=== PATIENT | female | born 1975 | race Caucasian/White ===

== ENCOUNTER 2023-08-03 14:51 | Outpatient (CLI) | payer OTHER, SELFPAY ==
[2023-08-03 15:39] LABS: Appearance Urine Clear (Clear); Bacteria Urine None Seen /hpf; Bilirubin Urine Negative (Negative); Blood Urine Negative (Negative); Color Urine Dark Yellow (Yellow); Glucose Urine UA Negative (Negative); Ketones Urine 1+ mg/dL (Negative); Leukocyte Esterase Ur Negative LEU/UL (Negative); Nitrate Urine Negative (Negative); Non Pathogenic Casts 0-2; Protein Urine Trace mg/dL (Negative); RBC Urine 0-2 /hpf (0-2); Specific Grav Ur 1.028 (1.001-1.035); Squamous Epithelial Cell Urine None seen /hpf (Few); WBC Urine 0-5 /hpf; pH Urine 5.5 (5.0-9.0)
[2023-08-03 15:58] LABS: Add Urine Microscopic? YES
[2023-08-03 15:59] LABS: D Dimer 0.53 ug/mL (<0.48)
== END 2023-08-03 14:52 | disposition home or self-care (01) ==
LOC: ANHLAB 14:59
PROVIDERS: PCP Emergency Medicine; Visit Provider Emergency Medicine
DX: D64.9 Anemia, unspecified (principal); E55.9 Vitamin D deficiency, unspecified; E78.5 Hyperlipidemia, unspecified; G54.7 Phantom limb syndrome without pain; R07.9 Chest pain, unspecified; Z89.611 Acquired absence of right leg above knee
CPT/HCPCS: 36415; 81001; 85380

== ENCOUNTER 2023-08-07 13:15 | Outpatient (CLI) | payer OTHER, SELFPAY ==
--- NOTE | ~2023-08-07 | CT_ITS ---
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 TECHNIQUE: Computed tomographic angiography (CTA) of the chest was performed with 100 mL Omnipaque-35 0 intravenous contrast. The dose-length product was 150.08 mGy-cm. Maximum intensity projection 3D-re constructions of the aorta and other arteries were constructed by the technologist on a separate work station. Automated exposure control and iterative reconstruction technique were employed. COMPARISON: None. FINDINGS: Study is technically adequate without evidence for pulmonary embolism. Heart size normal. N o thoracic lymphadenopathy. No significant pleural or pericardial effusion. There is right hydronephr osis, partially visualized. There is right renal cortical atrophy. There are groundglass opacities in the right upper and bilateral lower lobes, suspicious for pneumonia. There is mild emphysema. No end obronchial lesions. No pneumothorax. No acute osseous abnormality. IMPRESSION: 1. No evidence for pulmonary embolism. 2: Patchy groundglass opacities of the right upper and bilateral lower lobes, suspicious for pneumoni a. Reviewed, dictated and finalized at location B. APPLICATION CLERK IMPRESSION: 1. No evidence for pulmonary embolism. 2: Patchy groundglass opacities of the right upper and bilateral lower lobes, s uspicious for pneumonia.
[2023-08-07 13:48] LABS: Basophils Percent Auto 0.3 % (0.2-1.2); Eosinophils Absolute Auto 0.2 K/mm3 (0-0.3); Hematocrit 48.2 % (37.0-47.0); Hemoglobin 15.8 g/dL (12.0-15.0); Immature Granulocyte Absolute 0.02 K/mm3 (0.00-0.031); Immature Granulocyte Percent A 0.3 % (0-0.5); Lymphocytes Absolute Auto 2.73 K/mm3 (0.9-3.2); Lymphocytes Percent Auto 34.6 % (18.3-44.2); Mean Corpuscular HGB Conc 32.8 g/dl (32-36); Mean Corpuscular Hemoglobin 29.4 pg (26-34); Mean Corpuscular Volume 89.8 fl (80-100); Mean Platelet Volume 10.1 fl (7.4-10.4); Monocytes Absolute Auto 0.4 K/mm3 (0.1-0.6); Monocytes Percent Auto 5.4 % (2.6-8.5); Neutrophils Absolute Auto 4.5 K/mm3 (1.3-6.7); Neutrophils Percent Auto 57.4 % (45.5-73.1); Platelet Count Result 321 k/mm3 (150-375); Red Blood Count 5.37 M/mm3 (4.2-5.4); Red Cell Distribution Width 14.6 % (11.5-14.5); White Blood Count 7.9 K/mm3 (4.5-10.0)
[2023-08-07 13:59] LABS: Alanine Aminotransferase 11 U/L (6-35); Albumin Level 4.2 g/dL (3.5-5.1); Alkaline Phosphatase 99 U/L (38-126); Anion Gap 6 mmol/L (8-16); Aspartate Amino Transferase 25 U/L (14-36); Bilirubin,Total 0.5 mg/dL (0.2-1.3); Blood Urea Nitrogen 9 mg/dL (7-17); Calcium 9.9 mg/dL (8.4-10.2); Carbon Dioxide 29 mmol/L (22-30); Chloride 104 mmol/L (98-107); Cholesterol 247 mg/dL (0-200); Estimated Glomerular Filt Rate > 60; Glucose 91 mg/dL (65-110); HDL Direct 51 mg/dL; Phosphorus 4.4 mg/dL (2.5-4.5); Potassium 5.2 mmol/L (3.4-5.0); Sodium 139 mmol/L (137-145); Triglycerides 180 mg/dL (<150)
[2023-08-07 14:10] LABS: LDL Cholesterol Direct 147 mg/dL
[2023-08-07 14:24] LABS: Vitamin D 25 Hydroxy 18.2 ng/mL
[2023-08-07 17:05] LABS: Folic Acid 7.9 ng/mL (2.76->20)
== END 2023-08-07 13:16 | disposition home or self-care (01) ==
PROVIDERS: PCP Emergency Medicine; Visit Provider Emergency Medicine
DX: D64.9 Anemia, unspecified (principal); E55.9 Vitamin D deficiency, unspecified; E78.5 Hyperlipidemia, unspecified; R45.7 State of emotional shock and stress, unspecified; R07.9 Chest pain, unspecified; Z89.611 Acquired absence of right leg above knee
CPT/HCPCS: 36415; 71275; 80061; 80069; 80076; 82306; 82607; 82746; 84443; 85025; Q9967

== ENCOUNTER 2024-02-07 07:31 | Outpatient (CLI) | payer OTHER, SELFPAY ==
--- NOTE | ~2024-02-07 | MM_ITS ---
EXAMINATION: MM screening jaciel BI w adriana HISTORY: Screening TECHNIQUE: Craniocaudal and mediolateral oblique 3-D tomosynthesis images were obtained and synthetic 2-D images were generated. CAD analysis was submitted and interpreted. COMPARISON: No prior mammogram is available for comparison at this institution. BREAST PARENCHYMAL COMPOSITION: Dense: The breasts are heterogeneously dense, which may obscure small masses FINDINGS: There are bilateral breast asymmetries. There are no suspicious calcifications. No architec tural distortion. IMPRESSION: 1. Bilateral breast asymmetries. 2. Recommend comparison to previous mammograms. BI-RADS Category 0: Incomplete: Needs additional imaging evaluation. Reviewed, dictated and finalized at location B.
== END 2024-02-07 07:32 | disposition home or self-care (01) ==
PROVIDERS: PCP Emergency Medicine; Visit Provider Emergency Medicine
DX: Z12.31 Encounter for screening mammogram for malignant neoplasm of breast (principal); R92.8 Other abnormal and inconclusive findings on diagnostic imaging of breast
CPT/HCPCS: 77063; 77067

== ENCOUNTER 2024-04-10 12:40 | Outpatient (CLI) | payer OTHER, SELFPAY ==
--- NOTE | ~2024-04-10 | MMUS_ITS ---
EXAMINATION: MM diagnostic jaciel BI w adriana, US breast BI complete HISTORY: Follow-up breast asymmetries TECHNIQUE: Additional 3-D tomosynthesis images of the breasts were performed and synthetic 2-D images were generated. CAD analysis was submitted and interpreted. High resolution bilateral complete breas t ultrasound was performed. COMPARISON: 02/07/2024 BREAST PARENCHYMAL COMPOSITION: Dense: The breasts are extremely dense, which lowers the sensitivity of mammography. FINDINGS: MAMMOGRAPHIC FINDINGS: There are scattered bilateral breast asymmetries which are less apparent with spot compression and me diolateral views. No discrete mass identified. No suspicious architectural distortion. ULTRASOUND: Complete US of all 4 quadrants of the breast/s and retroareolar region was reviewed. Right breast: No heterogeneous echotexture without focal mass. Left breast: At 5:00, 2 cm from the nipple there is a normal intramammary lymph node measuring 5 mm. No suspicious masses to suggest malignancy. IMPRESSION: 1. No evidence for malignancy in either breast. 2. Routine yearly screening mammogram and regular clinical breast examination are recommended. BI-RADS Category 2: Benign finding(s). Reviewed, dictated and finalized at location B. IMPRESSION: 1. No evidence for malignancy in either breast. 2. Routine yearly screening mammogram and regular clinical breast examination a re recommended. BI-RADS Category 2: Benign finding(s).
== END 2024-04-10 12:41 | disposition home or self-care (01) ==
LOC: ANHIMG 12:42
PROVIDERS: PCP Emergency Medicine; Visit Provider Emergency Medicine
DX: R92.8 Other abnormal and inconclusive findings on diagnostic imaging of breast (principal)
CPT/HCPCS: 76641; 77062; 77066; G0279

== ENCOUNTER 2024-12-04 14:13 | Outpatient (CLI) | payer OTHER, SELFPAY ==
--- NOTE | ~2024-12-04 | CT_ITS ---
CT Scan of the Chest without Contrast: Clinical Indication: Solitary pulmonary nodule Technique: Contiguous sections were acquired throughout the chest without intravenous contrast. Dose reduction technique was used on this scan by utilizing automated exposure control and iterative recon struction technique. The dose-length product (DLP) was 66.12 mGy-cm. COMPARISON: 08/07/2023 Findings: There is no evidence of any significant mediastinal, hilar or axillary lymphadenopathy. The mediastin al soft tissues appear normal. There is no evidence of pleural or pericardial effusion. The lungs are clear. No pulmonary nodules or infiltrates are noted. Images through the upper abdomen reveal partially imaged severe right hydronephrosis with right renal cortical thinning. Impression: Clear lungs. Partially imaged severe chronic right hydronephrosis with right renal cortical thinning. Reviewed, dictated and finalized at location . Impression: Clear lungs. Partially imaged severe chronic right hydronephrosis with right renal cortical thinning.
--- OUTSIDE RECORDS SUMMARY | 2024-12-04 14:21 | XMS_ITS | Encounter Summary ---
Author Organization [facility] Healthcare Address [address] [place] [address] Care Team Providers Care Certified Detention Deputy Name Role Phone Emily Mcelroy MD Unavailable [phone] Beka Moss MD Primary Care Provider [phone] Sudhakar Lowery MD Unavailable [phone] Maria Isabel Temple MD Unavailable [phone] Encounter Details Date Type Department Care Team (Late st Contact Info) Description 12/02/2024 Hospital Encounter [facility] Operating Room [address] [facility] [place] [id number] Sudhakar Lowery MD [id number] [place], [place] [id number] Social History Tobacco Use Types Packs/Day Years Used Date Smoking Tobacco: Every Day Cigarettes 0.5 35.1 Started: 10/26/1989 Smokeless Tobacco: Never Alcohol Use Standard Drinks/Week Comments Not Currently 0 (1 standard drink = 0.6 oz pur e alcohol) prior ETOH use 2 years ago AUDIT-C Answer Date Recorded Q1: How often do you have a drink containing alcohol? Never 11/27/2024 Q2: How many drinks containi ng alcohol do you have on a typical day when you are drinking? Patient does not drink Q3: How often do you have si x or more drinks on one occasion? Never 11/27/2024 Hunger Vital Sign Answer Date Recorded Within the past 12 months, y ou worried that your food would run out before you got the money to buy more. Never true 03/13/20 24 Within the past 12 months, t he food you bought just didn't last and you didn't have money to get more. Never true 03/13/2024 Personal Safety Answer Date Recorded Have you ever been in or are you currently in a harmful physical or emotional relationship or is someone making you feel afraid or unsafe? 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 Never 11/27/2024 1:21 PM ARMANDOT Jenifer Salcedo RN Q2: How many drinks containing alcohol do you have on a typical day when you are drinking? Patient does not drink 11/27/2024 1:21 PM ARMANDOT Jenifer Salcedo RN Q3: How often do you have six or more drinks on one occasion? Never 11/27/2024 1:21 PM ARMANDOT Jenifer Salcedo RN documented as of this encounter Plan of Treatment Upcoming Encounters Date Type Department Care Team (Late st Contact Info) Description 12/05/2024 8:15 AM CDT Hospital Encounter [facility] Endoscopy [address] [place] [address] Sudhakar Lowery MD [address] [phone] [place] [address] 12/05/2024 8:15 AM CDT Anesthesia Event [facility] Endoscopy [address] [place] [address] Gaudencio Bailey MD [address] [place] [address] 12/05/2024 8:15 AM CDT - 12/05/2024 9:00 AM CDT Surgery [facility] Endoscopy [address] [address] Sudhakar Lowery MD [address] [facility] [phone] [place] [address] COLONOSCOPY Scheduled Procedures Name Priority Associated Diagnoses Date/Ti me COLONOSCOPY History of anal cancer 12/05/2024 8:15 AM CDT documented as of this encounter Visit Diagnoses Not on filedocumented in this encounter Admitting Diagnoses Diagnosis Anal squamous cell carcinoma (HCC) Malignant neoplasm of anus, unspecified site documented in this encounter Care Teams Certified Detention Deputy Relationship Specialty Start Date End Date Beka Moss MD [address] [place] [address] PCP - General Family Medicine 06/01/21 Emily Mcelroy MD [address] [place] [id number] 09/15/16 Sudhakar Lowery MD [address] [place] [address] Surgeon Colon and Rectal Surgery 09/15/21 Maria Isabel Temple MD [address] [phone] [place] [address] Referring Physician Gynecologic Oncology 09/16/21 documented as of this encounter
--- OUTSIDE RECORDS SUMMARY | 2024-12-04 14:21 | XMS_ITS | CONTINUITY OF CARE DOCUMENT ---
Author Name harrison terry Address Unknown Organization [facility] Address [address] [place] [address] Phone [phone] Care Team Providers Care Bingo Checker Name Role Phone Blake Quinones MD Unavailable LIAM COHEN MD Unavailable [phone] LIAM COHEN MD Unavailable PROBLEMS Condition Status Date Provider Notes Shortness of breath (SOB) active Aston Wich ARTHRITIS active Blake Quinones MD Leg pain Thromboangiitis obliterans active Blake Quinones MD Cervical cancer s/p radiatio n and chemo active Blake Quinones MD Chest pain-type to be determined active Celestino Quinones MD HYPERCHOLESTEROLEMIA active Blake Quinones MD CAROTID ARTERY DISEASE;NEG D UPLEX 2010 completed - Blake Quinones MD GALLSTONES;NEG US 2010 completed 6 - Blake Quinones MD MENOPAUSE, SURGICAL active Paul Canela MD SCHIZOPHRENIA completed - Blake Quinones MD BIPOLAR AFFECTIVE DISORDER completed 07/22 - Blake Quinones MD ANXIETY DISORDER active Paul Canela MD ORTHOSTATIC DIZZINESS;NEG HO LTER 2010 DUE TO PSYCH MEDS? completed - Blake Quinones MD CLAUDICATION, INTERMITTENT;W ILL REYNA completed - Blake Quinones MD ASTHMA active Blake Quinones MD CAD;NEG NUC 11, NEG ECHO 2011 completed 20 05/17/06 - Blake Quinones MD DVT;NEG VD 07 completed - Blake Quinones MD TOBACCO ABUSE active Paul Canela MD CHEST PAIN-TYPE TO BE DETERMINED;WILL ATKINS completed - Paul Canela MD ENCOUNTERS Date Type Provider Location Encounter Diag nosis - In-person encounter Office Visit Blake Quinones MD [facility] Office - In-person encounter Office Visit Blake Quinones MD [facility] ARTHRITIS - In-person encounter Office Visit Blake Quinones MD [facility] - In-person encounter Office Visit Blake Quinones MD [facility] - In-person encounter Office Visit Blake Quinones MD [facility] - In-person encounter Office Visit Blake Quinones MD [facility] Leg pain Thromboangiitis obliterans - In-person encounter Office Visit Blake Quinones MD [facility] Leg pain Thromboangiitis obliterans - In-person encounter Office Visit Blake Quinones MD [facility] DVT;NEG VD 07CAD;NEG NUC 11, NEG ECHO 2011ASTHMACLAUDICATION, INTERMITTENT;WILL ABIORTHOSTATIC DIZZINESS;NEG HOLTER 2010 DUE TO PSYCH MEDS?BIPOLAR AFFECTIVE DISORDERSCHIZOPHRENIAGALLSTONES;N EG US 2010CAROTID ARTERY DISEASE;NEG DUPLEX 2010Chest pain-type to be determinedCervical cancer s/p radiation and chemo - In-person encounter Office Visit Blake Quinones MD [facility] HYPERCHOLESTEROLEMIA - In-person encounter Office Visit Blake Quinones MD [facility] - In-person encounter Office Visit Paul Canela MD [facility] - In-person encounter Office Visit Paul Canela MD [facility] CHEST PAIN-TYPE TO BE DETERMINED;WILL WUASTHMAHYPERCHOLESTEROLEMIA - In-person encounter Office Visit Paul Canela MD [facility] TOBACCO ABUSECAD;NEG NUC 11, NEG ECHO 2011ASTHMAORTHOSTATIC DIZZINESS;NEG HOLTER 2010 DUE TO PSYCH MEDS?ANXIETY DISORDERMENOPAUSE, SURGICALGALLSTONES;NEG US 2010 VITAL SIGNS Date Observation Value Provider Body Mass Index (Ratio) 19.57 kg/m2 Denny Quinones MD pulse rate 93 /min [facility] blood pressure, diastolic 80 mm[Hg] [facility] blood pressure, systolic 100 mm[Hg] [facility] oxygen saturation, oximetry 98 % [facility] weight E&M 114 [lb_av] [facility] respiratory rate E&M 16 /min [facility] height E&M 64 [in_i] [facility] Body Mass Index (Ratio) 19.74 kg/m2 Denny Quinones MD blood pressure, diastolic 80 mm[Hg] Neal [facility] blood pressure, systolic 122 mm[Hg] Bhavin [facility] oxygen saturation, oximetry 98 % [facility] respiratory rate E&M 16 /min [facility] pulse rate 80 /min [facility] weight E&M 115 [lb_av] [facility] height E&M 64 [in_i] [facility] Body Mass Index (Ratio) 18.88 kg/m2 Denny Quinones MD blood pressure, diastolic 70 mm[Hg] Neal [facility] blood pressure, systolic 110 mm[Hg] Bhavin sanford Fisher oxygen saturation, oximetry 98 % [facility] respiratory rate E&M 16 /min [facility] 78 /[facility]&M 110 [lb_av] Tilden Gordon height E&M 64 [in_i] Tilden Gordon Body Mass Index (Ratio) 19.22 kg/m2 Denny Quinones MD blood pressure, cuff size regular Cy ntsintia Ho blood pressure, diastolic 70 mm[Hg] Cy ntsintia Ho blood pressure, systolic 116 mm[Hg] Radha zacarias Ho oxygen saturation, oximetry 98 % Kindra Ho respiratory rate E&M 18 /min Kindrachelsi Ho pulse rate 96 /min Kindra Arturobel l weight E&M 112 [lb_av] Kindra Campbel l height E&M 64 [in_i] Ikndra Campbel l Body Mass Index (Ratio) 18.88 kg/m2 Denny Quinones MD blood pressure, cuff size regular Ke rri Gruenenfdger blood pressure, diastolic 70 mm[Hg] Ke rri Gruenenfelder blood pressure, systolic 110 mm[Hg] Kristie Mcmahon oxygen saturation, oximetry 99 % Marsha Mcmahon respiratory rate E&M 18 /min Marsha jackson pulse rate 80 /min Marsha ludwiger weight E&M 110 [lb_av] Marsha Moore lder height E&M 64 [in_i] Marsha Moore lder Body Mass Index (Ratio) 19.39 kg/m2 Denny Quinones MD oxygen saturation, oximetry 98 % Marsha Mcmahon respiratory rate E&M 18 /min Marsha celisenenfeldmaribel pulse rate 78 /min Marsha Moore lder weight E&M 113 [lb_av] Marsha Moore lder height E&M 64 [in_i] Marsha Moore er Body Mass Index (Ratio) 18.81 kg/m2 Denny Quinones MD blood pressure, diastolic 75 mm[Hg] Jose Alberto Elena blood pressure, systolic 115 mm[Hg] Marilou Elena oxygen saturation, oximetry 95 % Alma Elena respiratory rate E&M 18 /min Kaitlin Elena pulse rate 71 /min Alma Villalta nsrain weight E&M 109.6 [lb_av] Alma lron height E&M 64 [in_i] Alma Villalta [facility] Body Mass Index (Ratio) 18.88 kg/m2 Denny Quinones MD blood pressure, cuff size small Marcos Jimenezby blood pressure, diastolic 60 mm[Hg] Marcos castillo [place] blood pressure, systolic 100 mm[Hg] Antwon hawkins Sona oxygen saturation, oximetry 98 % Ciara Jimenezby respiratory rate E&M 16 /min Ciara [place] pulse rate 78 /min Ciara [place] blood pressure, resting No Thong mukesh Jimenezby weight E&M 110 [lb_av] Ciara Sona height E&M 64 [in_i] Ciara [place] oxygen saturation, oximetry 98 % Lissette Beltrán respiratory rate E&M 16 /min Lissette rodrigez pulse rate 87 /min Lissette Beltrán blood pressure, diastolic 68 mm[Hg] Lissette Beltrán blood pressure, systolic 108 mm[Hg] Lissette Beltrán weight E&M 137 [lb_av] Lissette Beltrán blood pressure, diastolic 80 mm[Hg] Bocanegra blood pressure, systolic 160 mm[Hg] Reji Cisneros Body Mass Index (Ratio) 23.77 kg/m2 Rejiwillie verenice Cisneros blood pressure, diastolic 73 mm[Hg] Bocanegra blood pressure, systolic 116 mm[Hg] Reji fowlerjerad Amelia pulse rate 96 /min Rejimari Cisneros oxygen saturation, oximetry 98 % Jessi Cisneros respiratory rate E&M 16 /min Jessi Cisneros weight E&M 138 [lb_av] Hilaryjerad Cisneros height E&M 64 [in_i] Jessi Cisneros blood pressure, diastolic, left arm 80 mm [Hg] Jessi Cisneros blood pressure, systolic, left arm 115 mm [Hg] Jessi Cisneros blood pressure, diastolic, right arm 72 m m[Hg] Jessi Cisneros blood pressure, systolic, right arm 110 m m[Hg] Jessi Cisneros blood pressure, diastolic 72 mm[Hg] Bocanegra blood pressure, systolic 110 mm[Hg] Reji fowlerjerad Cisneros pulse rate 87 /min Rejimalcolmjerad Cisneros oxygen saturation, oximetry 99 % Jessi Cisneros respiratory rate E&M 16 /min Hilaryjerad Cisneros weight E&M 136 [lb_av] Jessi Cisneros blood pressure, diastolic, left arm 90 mm [Hg] Ry Zheng RN blood pressure, systolic, left arm 127 mm [Hg] Ry Zheng RN blood pressure, diastolic, right arm 88 m m[Hg] Ry Zheng RN blood pressure, systolic, right arm 127 m m[Hg] Ry Zheng RN blood pressure, diastolic 90 mm[Hg] Ross Zheng RN blood pressure, systolic 127 mm[Hg] Ry Zheng RN pulse rate 82 /min Ry Zheng RN oxygen saturation, oximetry 99 % Ry Zheng RN respiratory rate E&M 18 /min Ry Claudine fortune RN weight E&M 147 [lb_av] Ry Norm RN ALLERGIES Allergy Name Onset Date Reaction Criticality Status CODEINE Low Criticality active EPINEPHRINE Low Criticality active RESULTS Date Observation Value Provider Reference Range Interpretation Location lipoprotein, beta, serum, point, quantitative, calculated 127 mg/dL [facility] 0-99 High very low density lipoproteins 32 mg/dL [facility] 5-40 HDL cholesterol, serum 53 mg/dL [facility] >39 triglyceride, serum, random 158 mg/dL [facility] 0-149 High cholesterol, serum 212 mg/dL [facility] 100-199 High calcium, serum 9.9 mg/dL [facility] 8.7-10.2 carbon dioxide, venous blood 22 mmol/L [facility] 20-29 chloride, serum 100 mmol/L [facility] 96-106 potassium, serum 4.9 mmol/L [facility] 3.5-5.2 sodium, serum 138 mmol/L [facility] 542-012 2744/10 /17 urea nitrogen/creatinine ratio, serum 22 [facility] 9-23 eGFR if 127 mL/min/{1.73_ m2} [facility] >59 eGFR if not 110 mL/min/{1.73_ m2} [facility] >59 creatinine, serum 0.68 mg/dL [facility] 0.57-1.00 urea nitrogen, blood 15 mg/dL [facility] 6-24 blood glucose, random 80 mg/dL [facility] 65-99 prothrombin time (patient) 10.3 s [facility] 9.1-12.0 international normalized ratio (INR) 1.0 [facility] 0.8-1.2 basophil count, absolute 0.0 x10E3/uL [facility] 0.0-0.2 Eosinophil Absolute Count 0.1 X10E3/UL [facility] 0.0-0.4 monocyte count, blood, automated 0.5 X10E3/UL [facility] 0.1-0.9 lymphocyte count, blood, automated 2.1 X10E3/UL [facility] 0.7-3.1 Absolute Neutrophils 2.6 X10E3/UL [facility] 1.4-7.0 basophils as percent of blood leukocytes 0 % [facility] Not Estab. eosinophils as percent of blood leukocytes 2 % [facility] Not Estab. monocytes as percent of blood leukocytes 10 % [facility] Not Estab. lymphocytes as percent of blood leukocytes 40 % [facility] Not Estab. neutrophils as percent of blood leukocytes 48 % [facility] Not Estab. platelet count 270 X10E3/UL [facility] 570-087 9273/10 /17 red blood cell distribution width 14.5 % [facility] 12.3-15.4 mean corpuscular hemoglobin concentration, RBC 33.9 G/DL [facility] 31.5-35.7 mean corpuscular hemoglobin, RBC 30.7 pg [facility] 26.6-33.0 mean corpuscular volume, RBC 90 fL [facility] 79-97 hematocrit, blood 43.9 % [facility] 34.0-46.6 hemoglobin, blood 14.9 g/dL [facility] 11.1-15.9 erythrocyte (RBC) count 4.86 X10E6/UL [facility] 3.77-5.28 leukocyte count, blood 5.4 X10E3/UL [facility] 3.4-10.8 ferritin, serum 86 ng/mL [facility] 15-150 B-12, serum 210 pg/mL [facility] 232-1245 Low iron saturation percent, serum 14 % [facility] 15-55 Low iron, serum 45 ug/dL [facility] 27-159 iron binding capacity, unsaturated 266 ug/dL [facility] 034-145 3608/02 /20 iron binding capacity, total 311 ug/dL [facility] [phone]/02 /20 hemoglobin A1C, blood, as % of total hemoglobin 4.9 % [facility] 4.8-5.6 lipoprotein, beta, serum, point, quantitative, calculated 138 mg/dL [facility] 0-99 High very low density lipoproteins 15 mg/dL [facility] 5-40 HDL cholesterol, serum 61 mg/dL [facility] >39 triglyceride, serum, random 75 mg/dL [facility] 0-149 cholesterol, serum 214 mg/dL [facility] 100-199 High basophil count, absolute 0.0 x10E3/uL [facility] 0.0-0.2 Eosinophil Absolute Count 0.1 X10E3/UL [facility] 0.0-0.4 monocyte count, blood, automated 0.4 X10E3/UL [facility] 0.1-0.9 lymphocyte count, blood, automated 1.4 X10E3/UL [facility] 0.7-3.1 Absolute Neutrophils 4.0 X10E3/UL [facility] 1.4-7.0 basophils as percent of blood leukocytes 0 % [facility] Not Estab. eosinophils as percent of blood leukocytes 2 % [facility] Not Estab. monocytes as percent of blood leukocytes 7 % [facility] Not Estab. lymphocytes as percent of blood leukocytes 24 % [facility] Not Estab. neutrophils as percent of blood leukocytes 67 % [facility] Not Estab. platelet count 288 X10E3/UL [facility] 013-129 0557/02 /20 red blood cell distribution width 16.3 % [facility] 12.3-15.4 High mean corpuscular hemoglobin concentration, RBC 32.2 G/DL [facility] 31.5-35.7 mean corpuscular hemoglobin, RBC 28.6 pg [facility] 26.6-33.0 mean corpuscular volume, RBC 89 fL [facility] 79-97 hematocrit, blood 41.0 % [facility] 34.0-46.6 hemoglobin, blood 13.2 g/dL [facility] 11.1-15.9 erythrocyte (RBC) count 4.61 X10E6/UL [facility] 3.77-5.28 leukocyte count, blood 5.9 X10E3/UL [facility] 3.4-10.8 alanine aminotransferase (SGPT), serum 9 1/L [facility] 0-32 aspartate aminotransferase (SGOT), serum 14 1/L [facility] 0-40 alkaline phosphatase, serum 71 1/L [facility] 39-117 bilirubin, serum, total 0.3 mg/dL [facility] 0.0-1.2 albumin/globulin ratio, serum 1.9 [facility] 1.2-2.2 globulin, serum 2.2 [facility] 1.5-4.5 albumin, serum 4.1 g/dL [facility] 3.5-5.5 protein, total, serum 6.3 g/dL [facility] 6.0-8.5 calcium, serum 9.0 mg/dL [facility] 8.7-10.2 carbon dioxide, venous blood 23 mmol/L [facility] 18-29 chloride, serum 102 mmol/L [facility] 96-106 potassium, serum 4.7 mmol/L [facility] 3.5-5.2 sodium, serum 140 mmol/L [facility] 585-252 0917/02 /20 urea nitrogen/creatinine ratio, serum 15 [facility] 9-23 eGFR if not 116 mL/min/{1.73_ m2} [facility] >59 creatinine, serum 0.59 mg/dL [facility] 0.57-1.00 urea nitrogen, blood 9 mg/dL [facility] 6-20 blood glucose, random 78 mg/dL [facility] 65-99 thyroid stimulating hormone, serum 0.65 u[IU]/mL [facility] 0.270-4.20 Normal LDL/HDL (low-density lipoprotein/high-de nsity lipoprotein) ratio 2.6 RATIO [facility] 0.2-4.3 Normal VLDL cholesterol 25 mg/dL [facility] 8-41 Normal lipoprotein, beta, serum, point, quantitative, calculated 175 mg/dL [facility] 0-130 High cholesterol/HDL ratio, serum, percent 4.0 ratio [facility] 1.5-5.6 Normal HDL cholesterol, serum 67 mg/dL [facility] 65 Normal triglyceride, serum, fasting 124 mg/dL [facility] Normal cholesterol, serum 267 mg/dL [facility] 0-199 High bilirubin, serum, total 0.4 mg/dL [facility] 0-1.2 Normal alanine aminotransferase (SGPT), serum 19 1/L [facility] 0-33 Normal aspartate aminotransferase (SGOT), serum 17 1/L [facility] 0-32 Normal alkaline phosphatase, serum 66 1/L [facility] 35-104 Normal albumin/globulin ratio, serum 1.8 ratio [facility] 1.0-2.6 Normal globulin, serum 2.6 [facility] 1.6-4.0 Normal albumin, serum 4.7 g/dL [facility] 3.97-4.94 Normal protein, total, serum 7.3 g/dL [facility] 6.6-8.7 Normal calcium, serum 9.3 mg/dL [facility] 8.6-10.0 Normal blood glucose, random 108 mg/dL [facility] 74-109 Normal eGFR if 146 mL/min/{1.73_ m2} [facility] >60 Normal eGFR if not 121 mL/min/{1.73_ m2} [facility] >60 Normal urea nitrogen/creatinine ratio, serum 18.3 ratio [facility] 8.0-25.0 Normal creatinine, serum 0.6 mg/dL [facility] 0.50-0.90 Normal urea nitrogen, blood 11 mg/dL [facility] 6-20 Normal carbon dioxide, venous blood 26 mmol/L [facility] 22-29 Normal chloride, serum 98 MEQ/L [facility] 98-107 Normal potassium, serum 4.6 MEQ/L [facility] 3.5-5.1 Normal sodium, serum 138 MEQ/L [facility] 136-145 Normal alanine aminotransferase (SGPT), serum 17 1/L [employer] aspartate aminotransferase (SGOT), serum 25 1/L [employer] triglyceride, serum, fasting 71 mg/dL [employer] J[employer] HDL cholesterol, serum 43 mg/dL [employer] LDL cholesterol, serum 120 mg/dL [employer] cholesterol, serum 177 mg/dL CR[employer]ST[employer] triglyceride, target level 150 mg/dL CRYST[employer] HDL cholesterol, serum, target level 40 mg/dL CRYSTAL J[employer]EN[employer] LDL target level 130 mg/dL [employer] cholesterol, target level 200 mg/dL [employer] C-reactive protein, serum 0.42 mg/dL [facility] (<0.80) Normal platelet count 252 THOUSAND/UL [facility] (140-400) Normal red blood cell distribution width 13.3 % [facility] (11.0-15.0) Normal mean corpuscular hemoglobin concentration, RBC 33.7 G/DL [facility] (32.0-36.0) Normal mean corpuscular hemoglobin, RBC 31.4 pg [facility] (27.0-33.0) Normal mean corpuscular volume, RBC 93.0 fL [facility] (80.0-100.0 ) Normal hematocrit, blood 44.3 % [facility] (35.0-45.0) Normal hemoglobin electrophoresis, blood 14.9 [facility] (11.7-15.5) Normal erythrocyte (RBC) count 4.76 MILLION/UL [facility] (3.80-5.10) Normal leukocyte (white blood cells) count, blood 9.6 THOUSAND/UL [facility] (3.8-10.8) Normal alanine aminotransferase (SGPT), serum 9 1/L [facility] (6-40) Normal aspartate aminotransferase (SGOT), serum 13 1/L [facility] (10-30) Normal alkaline phosphatase, serum 65 1/L [facility] (33-115) Normal bilirubin, serum, total 0.4 mg/dL [facility] (0.2-1.2) Normal albumin/globulin ratio, serum 1.8 (calc) [facility] (1.0-2.1) Normal globulins, serum, total 2.6 G/DL (CALC) [facility] (2.2-3.9) Normal albumin, serum 4.6 g/dL [facility] (3.6-5.1) Normal protein, total, serum 7.2 g/dL [facility] (6.2-8.3) Normal calcium, serum 9.8 mg/dL [facility] (8.6-10.2) Normal carbon dioxide, venous blood 24 mmol/L [facility] (21-33) Normal chloride, serum 105 mmol/L [facility] (98-110) Normal potassium, serum 4.3 mmol/L [facility] (3.5-5.3) Normal sodium, serum 140 mmol/L [facility] (135-146) Normal urea nitrogen/creatinine ratio, serum NOT APPLICABLE (calc) [facility] (6-22) Estimated Glomerular Filtration Rate (calc) >60 mL/min/1.73m2 [facility] (> OR = 60) Normal creatinine, serum 0.72 mg/dL [facility] (0.58-1.06) Normal urea nitrogen, blood 8 mg/dL [facility] (7-25) Normal blood glucose, random 89 mg/dL [facility] (65-99) Normal cholesterol/HDL ratio, serum, percent 5.7 (calc) [facility] (< OR = 5.0) High LDL cholesterol, serum 178 MG/DL (CALC) [facility] (<130) High triglyceride, serum, fasting 107 mg/dL [facility] (<150) Normal HDL cholesterol, serum 42 mg/dL [facility] (> OR = 46) Low cholesterol, serum 241 mg/dL [facility] (125-200) High HISTORY OF MEDICATION USE Medication Status Instructions Dates Provider Indications Com ments XARELTO 2.5 MG ORAL TABLET active one tab by mouth twice daily Blake Quinones MD DOXYCYCLINE MONOHYDRATE 50 MG ORAL CAPSULE active 1 cap daily x 14 days Татьяна Cabrales BUPROPION HCL ER (SR) 150 MG ORAL TABLET EXTENDED RELEASE 12 HOUR active one a day instead of chantix Lupe Aguilera RN ZOLPIDEM TARTRATE 5 MG ORAL TABLET active one tab daily before bed Blake Quinones MD CHANTIX CONTINUING MONTH CECIL 1 MG ORAL TABLET completed take as directed pt has tried nicotine patches and gum in the past - Lupe Aguilera RN CHANTIX STARTING MONTH CECIL 0.5 MG X 11 & 1 MG X 42 ORAL TABLET completed take as directed pt has tried nicotine patches and gum in the past - Lupe Aguilera RN CILOSTAZOL 50 MG ORAL TABLET active take one pill twice a day Marsha RODRIGEZ NICOTINE 2 MG MOUTH/THROAT GUM completed Use as needed. - Kindra Ho ATORVASTATIN CALCIUM 40 MG ORAL TABLET active One tablet daily Blake Quinones MD PLAVIX 75 MG ORAL TABLET active ONE TAB. DAILY Blake Quinones MD ADVIL 200 MG ORAL CAPSULE completed as needed - Marsha Camposphuramy ZOFRAN TABLET active as needed Alma Elena ESTRADIOL 0.1 MG/24HR TRANSDERMAL PATCH WEEKLY active as directed Alma Elena GABAPENTIN 600 MG ORAL TABLET active take one tablet by mouth three times daily Ciara Magallanes MORPHINE SULFATE ER 15 MG ORAL TABLET EXTENDED RELEASE completed TAKE 1 TABLET EVERY 12 HOURS NEEDED FOR PAIN - Alma Andresenson #60, 30 days supply, Prescribed by HANNAH BAILEY, Filled 09/24/2016 OXYCODONE HCL 5 MG/5ML ORAL SOLUTION active TAKE ONE TO TWO TEASPOONSFUL EVERY 4 HOURS NEEDED FOR PAIN Ciara Magallanes #1000, 17 days supply, Prescribed by HANNAH BAILEY, Filled 09/24/2016 WELLBUTRIN 100 MG ORAL TABLET completed ONE TAB. DAILY - Ciara Magallanes ZETIA 10 MG ORAL TABLET completed ONE TAB. DAILY - Ciara Magallanes PRAVACHOL 40 MG ORAL TABLET completed ONE TAB. DAILY - Blake Quinones MD RANITIDINE HCL 150 MG ORAL TABLET completed 1 tab every other day - Blake Quinones MD OMEGA-3 FISH OIL 1000 MG ORAL CAPSULE completed One tab. daily - CARLOS SANDS NP ASPIRIN 81 MG ORAL TABLET completed ONE TAB. DAILY - Blake Quinones MD XYLOCAINE JELLY 2 % GEL completed apply to vulva as needed - Blake Quinones MD VENTOLIN HFA AEROSOL SOLUTION completed every 4 as needed - Blake Quinones MD ALPRAZOLAM 1 MG ORAL TABLET completed one tab three times daily - Blake Quinones MD ROPINIROLE HCL 2 MG ORAL TABLET completed one tab at bedtime - Blake Quinones MD ABILIFY 30 MG ORAL TABLET completed one tab every night - Blake Quinones MD LAMOTRIGINE 200 MG ORAL TABLET completed 1 tab every other day - Blake Quinones MD FLUOXETINE HCL 20 MG ORAL CAPSULE completed twice daily - Blake Quinones MD SOCIAL HISTORY Date Observation Value Provider social history E&M Marital Statu s: Single L mary with family/friends E thnicity: Smoking History: P atrobel currently smokes every day. P atrobel has been counseled to quit. Blake Quinones MD social history [facility] E&M reviewed - no changes required Blake Quinones MD physical exercise, frequency, days per week no [facility] caffeine use, averag e drinks per day yes [facility] passive cigarette sm emeli exposure no [facility] smoking/tobacco cess ation, patient education and counseling yes [facility] chewing tobacco use no [facility] cigar use no [facility] number of years as a smoker 10 years or more [facility] smoking, date started 1989 [facility] smoking history, tot al pack/year 24 [facility] smoking history, tot al pack/day 1/2 [facility] cigarette use yes [facility] smoking status Current every day smoker [facility] social history [facility] E&M reviewed - no changes required Blake Quinones MD social history E&M Marital Statu s: Single L amry with family/friends E thnicity: Smoking History: P atrobel currently smokes every day. P atrobel has been counseled to quit. Blake Quinones MD Underweight no Blake Quinones MD physical exercise, frequency, days per week [facility], averag e drinks per day yes Tilden Gordon passive cigarette sm emeli exposure no Maria Alejandra Gordon smoking/tobacco cess ation, patient education and counseling yes Maria Alejandra [facility] chewing tobacco use no cigar use no number of years as a smoker 10 years or more Maria Alejandra smoking, date started 1989 [facility] Fisher smoking history, tot al pack/year 24 smoking history, tot al pack/day 1/2 cigarette use yes smoking status Current every day smoker [facility] Underweight yes Blake Quinones MD social history revie wed E&M reviewed - no changes required Blake Quinones MD physical exercise, frequency, days per week no alcohol use, average drinks per day social basis only alcohol use no caffeine use, averag e drinks per day yes drug use none smoking/tobacco cess ation, patient education and counseling yes passive cigarette sm emeli exposure no chewing tobacco use no cigar use no Tilden number of years as a smoker 10 years or more Tilden smoking, date started 1989 [facility] Fisher smoking history, tot al pack/year 24 Tilden smoking history, tot al pack/day 1/2 Tilden cigarette use yes Tilden smoking status Current every day smoker Junaid alverto Fisher Underweight no Blake Quinones MD number of grandchildren Blake Quinones MD T marques Quinones MD social history E&M Marital Statu s: Single L mary with family/friends E thnicity: Smoking History: P margie currently smokes every day. P margie has been counseled to quit. Blake Quinones MD social history revie wed E&M reviewed - no changes required Blake Quinones MD physical exercise, frequency, days per week no Kindra Vic alcohol use, average drinks per day social basis only Kindra Ho alcohol use no Kindra Bedolla akash caffeine use, averag e drinks per day yes Kindra Ho drug use none Kindra Morrisraina bustos smoking/tobacco cess ation, patient education and counseling yes Kindra Ho passive cigarette sm emeli exposure no Kindra Ho chewing tobacco use no Kindra Ho cigar use no Kindra Morrisraina bustos number of years as a smoker 10 years or more Kindra Vic smoking, date started 1989 Radhasandra gagnon Vic smoking history, tot al pack/year 24 Kindra Vic smoking history, tot al pack/day 1/ Kindra Vic cigarette use yes Kindra pratt smoking status current every day smoker C gamal Ho Underweight yes Blake Quinones MD social history E&M Marital Statu s: Single L mary with family/friends E thnicity: Smoking History: P margie currently smokes every day. P margie has been counseled to quit. Blake Quinones MD social history revie wed E&M reviewed - no changes required Blake Quinones MD physical exercise, frequency, days per week no Marsha Mcmahon alcohol use, average drinks per day social basis only Marsha Mcmahon alcohol use no Marsha nicole caffeine use, averag e drinks per day yes Marsha Mcmahon drug use none Marsha nicole smoking/tobacco cess ation, patient education and counseling yes Marsha Mcmahon passive cigarette sm emeli exposure no Marsha Mcmahon chewing tobacco use no Marsha Andres jean cigar use no Marsha Teresa lder number of years as a smoker 10 years or more Marsha Lisandro smoking, date started 1989 Marsha Mcmahon smoking history, tot al pack/year 24 Marsha Lisandro smoking history, tot al pack/day 1/2 Marsha Lisandro cigarette use yes Marsha Smith [facility] smoking status current every day smoker K vern Parvezmichaelaafshan social history revie wed E&M reviewed - no changes required Blake Quinones MD Underweight no Blake Quinones MD physical exercise, frequency, days per week no Marsha Smithafshan alcohol use, average drinks per day social basis only Marshaaj Solorzanopinkymichaelaafshan alcohol use no Marsha Teresa [facility] caffeine use, averag e drinks per day yes Marsha Lisandro drug use none Marsha Teresa er smoking/tobacco cess ation, patient education and counseling yes Marsha Sarahafshan passive cigarette sm emeli exposure no Marsha Sarahdgmaribel chewing tobacco use no Marsha Andres alanizafshan cigar use no Marsha Teresa er number of years as a smoker 10 years or more Marsha Lisandro smoking, date started 1989 Marsha Smithafshan smoking history, tot al pack/year 24 Marsha Sarahdgmaribel smoking history, tot al pack/day 1/2 Marsha Sarahdgmaribel cigarette use yes Marsha Smith [facility] smoking status current every day smoker K vern Camposphumichaelaafshan social history E&M Marital Statu s: Single L mary with family/friends E thnicity: Smoking History: P margie currently smokes every day. P margie has been counseled to quit. Blake Quinones MD social history revie wed E&M reviewed - no changes required Blake Quinones MD Underweight yes Blake Quinones MD physical exercise, frequency, days per week no Alma Ulcies alcohol use, average drinks per day social basis only Alma Elena alcohol use no Alma lara caffeine use, averag e drinks per day yes Alma Elena drug use none Alma Villalta marco smoking/tobacco cess ation, patient education and counseling yes Alma Elena passive cigarette sm emeli exposure no Alma Elena chewing tobacco use no Rodrigo manuel Ulices cigar use no Alma Villalta carlorain number of years as a smoker 10 years or more Alma Elena smoking, date started 1989 Larissa Elena smoking history, tot al pack/year 24 Alma Ulices smoking history, tot al pack/day 1/2 Alma Elena cigarette use yes Alma williamson smoking status current every day smoker Shahbaz Quintanaisiah AndresElena social history revie wed E&M reviewed - no changes required Blake Quinones MD Underweight yes Blake Quinones MD smoking status current every day smoker T marques Quinones MD social history revie wed E&M reviewed Blake Quinones MD smoking/tobacco cess ation, patient education and counseling yes Blake Quinones MD quit smoking, stage precontemplative Denny Quinones MD smoking history, tot al pack/year 24 Blake Quinones MD drug use none Blake Quinones MD social history revie wed E&M reviewed Blake Quinones MD passive cigarette sm emeli exposure no Jessi Cisneros chewing tobacco use no Jessi Cisneros cigar use no Jessi Cisneros smoking history, tot al pack/day 1/2 Jessi Cisneros cigarette use yes Jessi jackson smoking history, tot al pack/year 24 Jessi Cisneros smoking, date started 1989 Pete Cisneros smoking status smoker - current status unknown Blake Quinones MD quit smoking, stage contemplative CRYSTAL JESENICK [employer] cigarette use 0.5 CRYSTAL JESENI CK [employer] smoking status current CRYSTAL MARGYSEN ICK [employer] social history revie wed E&M reviewed CARLOS SANDS [employer] social history revie wed E&M reviewed Paul Canela MD quit smoking, stage relapse Paul holman MD smoking/tobacco cess ation, patient education and counseling yes Ry Zheng RN social history E&M Marital Statu s: Single L mary with family/friends E thnicity: Ry Zheng RN social history revie wed E&M reviewed Ry Zheng RN physical exercise, frequency, days per week no [employer] caffeine use, averag e drinks per day yes [employer] alcohol use, average drinks per day social basis only [employer] number of years as a smoker 10 years or more [employer] smoking status Smoker [employer] FUNCTIONAL STATUS Date Observation Value Provider HRA, CV Assess/Plan, Angina (inactive) Management Plan continue current therapy Blake Quinones MD MENTAL STATUS Date Observation Value Provider assessment of judgme nt and insight E&M Alert and oriented to time, place and person. depressed affect. Blake Quinones MD assessment of judgme nt and insight E&M Alert and oriented to time, place and person. depressed affect. Blake Quinones MD assessment of judgme nt and insight E&M Alert and oriented to time, place and person. depressed affect. CARLOS SANDS NP assessment of judgme nt and insight E&M Alert and oriented to time, place and person. depressed affect. Paul Canela MD assessment of judgme nt and insight E&M Alert and oriented to time, place and person. depressed affect. Ry Zheng RN FAMILY HISTORY Family Member Condition Father SD male <55 Mother SD female <65 INSURANCE PROVIDERS Payer name Policy type / Coverage type [place] [employer] MEDICA[employer] (2) Medicaid [id number] ADVANCE DIRECTIVES Name Date DISCUSSED - NO DECISION MADE TREATMENT PLAN Date Name Performer Cardiology Blake Quinones MD Cardiology Blake Quinones MD Cardiology Blake Quinones MD Cardiology Blake Quinones MD Cardiology Blake Quinones MD Cardiology Blake Quinones MD Cardiology Blake Quinones MD Cardiology Blake Quinones MD Cardiology Blake Quinones MD Cardiology Blake Quinones MD Cardiology Blake Quinones MD Cardiology Blake Quinones MD Cardiology Blake Quinones MD Cardiology Blake Quinones MD Cardiology follow up Blake dumont MD Cardiology follow up Blake dumont MD Cardiology follow up Blake dumont MD Cardiology follow up Blake dumont MD Cardiology follow up Blake dumont MD Cardiology follow up Blake dumont MD Cardiology Follow up Blake dumont MD Cardiology Follow up Balke dumont MD Cardiology Follow up Blake duomnt MD Cardiology Follow up Blake dumont MD Cardiology Follow up Blake dumont MD Cardiology Follow up Blake dumont MD Cardiology Follow up Blake dumont MD Cardiology Follow up Blake dumont MD Cardiology Follow up Blake dumont MD Cardiology Follow up :check echo , stress test Blake Quinones MD Cardiology Follow up :exercise , asa, plavix, pletal Blake Quinones MD Cardiology:The Patie nt was reencouraged to stop smoking. She is trying to quit currently. Provided prescription for Nicotine gum. Blake Quinones MD Cardiology:Will get recent blood work from Dr. Cohen. Blake Quinones MD Cardiology:C/o sever e leg pain with walking. Has significant limitation with activity tolerance due to pain. Currently is smoking half ppd. P lease schedule an AIF with Dr. Guevara. W ill add Plavix 75 mg daily and atorvastatin 40 mg daily. W ill get a copy of results from [facility], carotid doppler, and recent blood work from Dr. Cohen. Blake Quinones MD Cardiology Blake Quinones MD Cardiology Blake Quinones MD Cardiology Blake Quinones MD Cardiology Blake Quinones MD Cardiology:Check ech o and stress test. P FTs and xray Blake Quinones MD : H er updated medication list for this problem includes: Zetia 10 Mg Tabs (Ezetimibe) ..... One tab. daily BP today: 108/68 Prior BP: 160/80 (09/09/2013) C HOL: 267 (08/26/2013) LDL: 175 (08/26/2013) HDL: 67 (08/26/2013) T (08/26/2013) C HOL (goal): 200 (05/18/2011) LDL (goal): 130 (05/18/2011) HDL (goal): 40 (05/18/2011) TG (goal): 150 (05/18/2011) Blake Quinones MD : C arotid Duplex Scan: N dalia GC (08/02/2010) Blake Quinones MD follow up: H er updated medication list for this problem includes: Alprazolam 1 Mg Tabs (Alprazolam) ..... One tab three times daily Aspirin 81 Mg Tabs (Aspirin) ..... One tab. daily BP today: 116/73 Prior BP: 110/72 (10/21/2010) H CT: 44.3 (07/29/2010) Platelets: 252 THOUSAND/UL (07/29/2010) R BC: 4.76 MILLION/UL (07/29/2010) BUN: 8 (07/29/2010) Creat: 0.72 (07/29/2010) Glucose: 89 (07/29/2010) N a+: 140 (07/29/2010) K+: 4.3 (07/29/2010) Cl: 105 (07/29/2010) Calcium: 9.8 (07/29/2010) Nuclear Stress Findings: 1. Regadenoson mediated myocardial perfusion study 2. Normal left ventricular systolic function with a calculated ejection fraction of 57%. 3 . No obvious significant scintigraphic evidence of myocardial ischemia or scar. GC (07/22/2010) Blake Quinones MD Lipid Mgmt: H er updated medication list for this problem includes: Pravachol 40 Mg Tabs (Pravastatin sodium) ..... One tab. daily CARLOS SANDS NP follow up Paul Canela MD follow up: O rders: A rterial Duplex Lower Extremity Bilateral (CPT-16114) S pirometry (CPT-28595) Paul Canela MD follow up: O rders: A rterial Duplex Lower Extremity Bilateral (CPT-13488) S pirometry (CPT-27501) e Prescribe - Check this box if eRx is used (CPT-G8553) Paul Canela MD follow up: H er updated medication list for this problem includes: Pravachol 40 Mg Tabs (Pravastatin sodium) ..... One tab. daily Orders: S pirometry (CPT-79401) e Prescribe - Check this box if eRx is used (CPT-G8553) Paul Canela MD follow up: H er updated medication list for this problem includes: Aspirin 81 Mg Tabs (Aspirin) ..... One tab. daily Orders: A rterial Duplex Lower Extremity Bilateral (CPT-86912) Spirometry (CPT-26250) e Prescribe - Check this box if eRx is used (CPT-G8553) Paul Canela MD follow up: O rders: A rterial Duplex Lower Extremity Bilateral (CPT-71579) S pirometry (CPT-72356) e Prescribe - Check this box if eRx is used (CPT-G8553) Paul Canela MD follow up: H er updated medication list for this problem includes: Alprazolam 1 Mg Tabs (Alprazolam) ..... One tab three times daily Aspirin 81 Mg Tabs (Aspirin) ..... One tab. daily Orders: S pirometry (CPT-68292) Paul Canela MD follow up: H er updated medication list for this problem includes: Ventolin Hfa Aers (Albuterol sulfate aers) ..... Every 4 as needed Orders: A rterial Duplex Lower Extremity Bilateral (CPT-09317) Paul Canela MD follow up: H er updated medication list for this problem includes: Aspirin 81 Mg Tabs (Aspirin) ..... One tab. daily Pravachol 40 Mg Tabs (Pravastatin sodium) ..... One tab. daily Paul Canela MD chest pain : O rders: C omplete Echo (CPT-79826) C arotid Duplex Bilateral (CPT-01546) H olter Monitor 24 Hr (CPT-80875) S tress Test - Adenosine (00457) X -Ray, Chest, PA & Lateral (CPT-91446) G allbaladder Ultrasound (CPT-61074) Paul Canela MD chest pain : O rders: G allbaladder Ultrasound (CPT-20333) Paul Canela MD chest pain : O rders: G allbaladder Ultrasound (CPT-21385) Paul Canela MD chest pain : H er updated medication list for this problem includes: Alprazolam 1 Mg Tabs (Alprazolam) ..... One tab three times daily Aspirin 81 Mg Tabs (Aspirin) ..... One tab. daily O rders: C omplete Echo (CPT-36839) C arotid Duplex Bilateral (CPT-08784) H olter Monitor 24 Hr (CPT-39390) S tress Test - Adenosine (65678) X -Ray, Chest, PA & Lateral (CPT-09137) G allbaladder Ultrasound (CPT-27843) aPul Canela MD chest pain : H er updated medication list for this problem includes: Ventolin Hfa Aers (Albuterol sulfate aers) ..... Every 4 as needed Orders: S pirometry (CPT-26731) C omplete Echo (CPT-64524) C arotid Duplex Bilateral (CPT-33458) H olter Monitor 24 Hr (CPT-97670) S tress Test - Adenosine (98152) X -Ray, Chest, PA & Lateral (CPT-21067) G allbaladder Ultrasound (CPT-81862) Paul Canela MD chest pain : H er updated medication list for this problem includes: Aspirin 81 Mg Tabs (Aspirin) ..... One tab. daily Orders: C omplete Echo (CPT-04770) C arotid Duplex Bilateral (CPT-81404) H olter Monitor 24 Hr (CPT-15498) S tress Test - Adenosine (15985) X -Ray, Chest, PA & Lateral (CPT-73400) G allbaladder Ultrasound (CPT-72018) Paul Canela MD chest pain : B P today: 127/90 Prior BP: / () Orders: E KG (CPT-53335) C omplete Echo (CPT-43830) C arotid Duplex Bilateral (CPT-50424) H olter Monitor 24 Hr (CPT-39917) S tress Test - Adenosine (72376) X -Ray, Chest, PA & Lateral (CPT-67274) G allbaladder Ultrasound (CPT-09385) Her updated medication list for this problem includes: Aspirin 81 Mg Tabs (Aspirin) ..... One tab. daily Paul Canela MD chest pain : O rders: C omplete Echo (CPT-55344) C arotid Duplex Bilateral (CPT-36310) H olter Monitor 24 Hr (CPT-64392) S tress Test - Adenosine (69848) X -Ray, Chest, PA & Lateral (CPT-96809) Paul Canela MD Date Name X-Ray, Knee STR - Adenosine DLCO - 79027 FRC - 60597 FVC - 06815 PROTHROMBIN TIME WIT H INR LIPID PANEL CBC (INCLUDES DIFF/P LT) BASIC METABOLIC PANE L W/EGFR VITAMIN B12/FOLATE, SERUM PANEL Vitamin D, 25-Hydrox y TSH, 3RD GENERATION W/REFLEX TO FT4 HEMOGLOBIN A1c IRON AND TOTAL IRON BINDING CAPACITY FERRITIN CBC (INCLUDES DIFF/P LT) LIPID PANEL COMPREHENSIVE METABO LIC PANEL, W/EGFR Spirometry Arterial Duplex Lowe r Extremity Bilateral C-REACTIVE PROTEIN LIPID PANEL CBC (H/H, RBC, INDIC ES, WBC, PLT) COMPREHENSIVE METABO LIC PANEL W/EGFR Gallbaladder Ultraso und X-Ray, Chest, PA & L ateral Stress Test - Adenos ine Holter Monitor 24 Hr Carotid Duplex Bilat eral Complete Echo Spirometry HISTORY OF PROCEDURES Procedure Date Procedure Name Provider Procedure Notes S tatus EKG Blake Quinones MD completed Regadenoson, 4 units Blake Quinones MD completed Cardiolite, 2 units Blake Quinones MD completed SPECT Images Ismael Banda MD completed Stress EKG Sebastian Clark MD completed FVC / MVV with bronchodilator - 35688 Blake Quinones MD completed BLOOD COUNT HEMOGLOBIN Blake Quinones MD completed FRC - 11119 Blake Quinones MD complete d SpO2 w/o 6min walk/titration Blake Quinones MD completed DLCO - 79092 Blake Quinones MD complet ed DLCO - 62011 Blake Quinones MD complet ed FRC - 19096 Blake Quinones MD complete d FVC - 67715 Blake Quinones MD complete d EKG Blake Quinones MD completed ePrescribe - Check t his box if eRx is used Paul Canela MD completed NATHANG Paul Canela MD complete d
--- OUTSIDE RECORDS SUMMARY | 2024-12-04 14:21 | XMS_ITS | Referral Summary ---
Author Organization [facility] Address [address] [place] [address] Care Team Providers Care Fitness Club Manager Name Role Phone Emily Mcelroy MD Unavailable Beka Moss MD Primary Care Provider [phone] Sudhakar Lowery MD Unavailable [phone] Maria Isabel Temple MD Unavailable [phone] Encounters Date Type Department Care Team Description 12/02/2024 Telephone [facility] Surgery [address] [facility] Floor 5 [place] [phone] Jacinta Hogan BS Reschedule (12/02/24 colonoscopy ) 12/02/2024 Hospital Encounter [facility] Operating Room [address] [place] [address] Sudhakar Lowery MD 11/28/2024 Telephone [facility] Surgery [address] [place] [phone] Daysi Marin RMChelsi Colonoscopy 11/08/2024 8:00 AM CDT - 11/08/2024 8:45 AM CDT Surgery [facility] Operating Room [address] [place] [address] Sudhakar Lowery MD EXAM UNDER ANESTHESIA - RECTUM 11/08/2024 8:03 AM CDT Anesthesia Event [facility] Operating Room [address] [place], [place] [address] Bonnie French MD Fischer, Elissa U., NP 11/08/2024 5:55 AM CDT - 11/08/2024 9:16 AM CDT Hospital Encounter [facility] Operating Room [address] [place], [place] [address] Sudhakar Lowery MD History of anal cancer Discharge Disposition: Discharge to home or self care 11/07/2024 Telephone [facility] Surgery [address] [place] [address] Medical Office Building [address] [place] [address] Ana M Gil RMA Surgery Confirmation 10/16/2024 9:15 AM CDT Office Visit [facility] Surgery [address] [place] [address] Medical Office Building [address] [place] [phone] Sudhakar Lowery MD Anal lesion (Primary Dx) from Last 3 Months Allergies Active Allergy Reactions Criticality Noted Date Comments Codeine Anaphylaxis,Hives,Sh ort ness of breath,Swelling,Urticar ia High 10/17/2008 Swelling of throat..no artifical airway needed Epinephrine Seizures High 12/21/2007 Melon Anaphylaxis High 09/14/2017 Nylon Other (See comments) High 12/01/2020 Nylon Stitches burning, blackening of skin Venom-Honey Bee Anaphylaxis,Swelling High 01/10/2019 throat swelling... never to the ER or hospitalized for Watermelon Angioedema,Swelling High 01/10/[address] compromise this includes watermelon,mushmellons, cantalope,cucumbers and any vined fruit Medications albuterol HFA (PROVENTIL HFA,VENTOLIN HFA,PROAIR HFA) 90 mcg/actuation inhaler Inhale 2 puffs every 8 (eight) hours as needed for wheezing or shortness of breath Active omeprazole (PriLOSEC) 20 mg capsuleIndicati ons:Treatment of Non-Bleeding Gastric Disorder,GERD Take 1 capsule (20 mg total) by mouth daily with dinner Active ALPRAZolam (XANAX) 0.5 mg tabletIndicatio ns:anxiety,slee p Take 1 tablet (0.5 mg total) by mouth 2 (two) times a day 4 Active ondansetron (ZOFRAN) 4 mg tabletIndicatio ns:bowel Take 1 tablet (4 mg total) by mouth every 8 (eight) hours as needed for nausea or vomiting Active oxyCODONE (ROXICODONE) 5 mg immediate release tabletIndicatio ns:Pain Take 1 tablet (5 mg total) by mouth every 4 (four) hours as needed for pain 10 tablet 5 Active docusate sodium (COLACE) 100 mg capsuleIndicati ons:constipatio n Take 1 capsule (100 mg total) by mouth 2 (two) times a day with a glass of water 60 capsule 5 Active BinaxNOW COVID-19 Ag Self Test kit 5 Active sodium, potassium & mag sulfates (SUPREP BOWEL KIT) 17.5-3.13-1.6 gram recon solnIndications :Bowel Evacuation Drink first half of prep at 6:00pm the night before procedure. Drink second half of prep 4 hours prior to leaving home for procedure. 354 mL 5 Active sodium, potassium & mag sulfates (Suprep Bowel Prep Kit) 17.5-3.13-1.6 gram recon solnIndications :Bowel Evacuation Drink first half of prep at 6:00 pm the night before procedure. Drink second half of prep 4 hours prior to leaving home for procedure. 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 States mood has been stable but with some anxiety recently. Provided prescription for ativan on 01/10/18. 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 Has appointment to see psychiatrist 02/2018. Seizure disorder 01/10/2018 Overview (01/10/2018): Last seizure years ago. Not on anti-epileptic medications. Surgical menopause on hormone replacement therap y 01/10/2018 Overview (12/26/2018): - H/o KARIME/RSO -Symptomatic (hot flashes and mood irritability) -Recently switched from patch to pills due to insurance. Patient not tolerating pills as hot flashes have worsened. Switched back to Rachna patch in 11/2018 but unable to obtain 2/2 insurance. Plan: - Still attempting to obtain patch but will prescribe estrace pills 2mg daily in the event that patient is unable to get patch. 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 - Vaginal pap (12/26/2018): NILM, pos HR HPV (neagtive 16, negative 18, negative 45), Plan for repeat Pap 12/2019 -Surveillance exam 05/2019: Small area which is pinpoint in size left lateral to the the clitoris which is pink and slightly raised - 07/03/19: Exam stable. Pinpoint area stable, no indication for biopsy as does not appear malignant. - 09/04/19: Exam stable. No gross e/o cancer. No biopsy performed. - 04/29/20: Exam stable. No gross e/o cancer. No biopsies performed. - 08/25/21: Exam with perianal ulcerated lesions, no c/f recurrence. Refer to colorectal surgery. Vaginal pap collected. - 03/13/24: vulvar exam stable. No gross e/o cancer. No biopsies performed. Vaginal pap collected today. New L cervical and L inguinal LN prominence. Worsening symptoms from known anal cancer. Pt planned for f/u w/ colorectal and colonoscopy appointment on 03/25. Given new symptoms and LAD, ordered for CT C/A/P to aid in GI assessment. Plan: - colonoscopy planned for 03/25 with CRS - CT C/A/P ordered today - f/u vaginal pap collected today Plan -F/u pap results -Referal to colorectal for perianal lesions -RTC 1 year or sooner if needed Vulvar pain 08/17/2017 Overview (09/04/2019): - H/o multiple vulvar resections and wound infections with resulting chronic pain. - Patient planned to wean oxycodone - Continue Gabapentin 600 mg TID - Continue bowel regimen (colace/miralax) to assist with pain secondary to constipation. Encouraged GI f/u for hemorrhoids Plan: - Current regimen: Oxy 5-10mg/ml liquid q6h PRN, Helga 600mg TID - Rx given for 720 mL today of Oxycodone. 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 -Blind vaginal pap (03/15/17) - ASCUS/HPV neg -Blind vaginal pap (01/10/18) - NILM/HPV neg - Next Pap due in 2019 Other chronic postprocedural pain 01/10/2018 12/26/2018 Overview (10/03/2018): H/o multiple vulvar resections and wound infections with resulting chronic pain. -continue bowel regimen (colace/miralax) to assist with pain secondary to constipation. -Current regimen: Oxy 5-10mg/ml liquid q6h PRN, Helga 600mg TID - Pt has been weaning down on oxycodone and is now off of long acting and only on short acting - Patient committed to weaning off oxycodone. 09/07/18: 1500mL oxycodone 10/03/18: 1350mL oxycodone. Increased gabapentin to 600 TID. Encouraged patient to draft roller picker lidocaine from the pharmacy. 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 Gender Identity Female 04/16/2024 6:57 AM CDT Sexual Orientation Straight 04/16/2024 6: 57 AM CDT Last Filed Vital Signs Vital Sign Reading Time Taken Comments Blood Pressure 101/55 11/08/2024 9:00 AM CDT Pulse 72 11/08/2024 9:05 AM CDT Temperature 36.2 C (97.2 F) 11/08/2024 8:45 AM CDT Respiratory Rate 17 11/08/2024 9:05 AM CDT Oxygen Saturation 96% 11/08/2024 9:05 AM CDT Inhaled Oxygen Concentration - - Weight 41.7 kg (92 lb) 12/04/2024 9:23 AM CDT Height 162.6 cm (5' 4 ) 12/04/2024 9:23 AM CDT Body Mass Index 15.79 12/04/2024 9:23 AM CDT Plan of Treatment Upcoming Encounters Date Type Department Care Team (Late st Contact Info) Description 12/05/2024 8:15 AM CDT Hospital Encounter [facility] Endoscopy [address] [place] [address] Sudhakar Lowery MD [phone] [place] [address] 12/05/2024 8:15 AM CDT Anesthesia Event [facility] Endoscopy [address] [place] [address] Gaudencio Bailey MD [address] [place] [address] 12/05/2024 8:15 AM CDT - 12/05/2024 9:00 AM CDT Surgery [facility] Endoscopy [address] [place] [address] Sudhakar Loweyr MD [phone] [place] [address] COLONOSCOPY Scheduled Procedures Name Priority Associated Diagnoses Date/Ti me COLONOSCOPY History of anal cancer 12/05/2024 8:15 AM CDT Procedures Procedure Name Priority Date/Time Associated Diagnosis Comments SURGICAL PATHOLOGY Routine 11/08/2024 8: 25 AM CDT History of anal cancer BIOPSY - ANAL 11/08/2024 8:08 AM CDT History of anal cancer EXAM UNDER ANESTHESIA - RECTUM 11/08/2024 8:08 AM CDT History of anal cancer PAP AND HIGH RISK HPV, REFLEX TO GENOTYPING Routine 03/13/2024 4:47 PM CDT Primary vulvar squamous cell carcinoma (HCC) from Last 3 Months or Most Recently Relevant to Health Maintenance Results * Surgical pathology (11/08/2024 8:25 AM CDT) Tissue (Mass/Tumor/Lesio n) 11/08/2024 8:25 AM CDT Narrative PATHOLOGY [facility] - 11/12/2024 2:21 PM CDT EPIC results best viewed via link to PDF [facility] [place] [address] Note to Patients: This report may contain a detailed description of human tissue sent by a health care provider to the laboratory for pathologic evaluation. The content of this report is essential for diagnosis and may provide important critical findings. This information may be unfamiliar to patients to review without a medical professional present. It is advised that the patient review this report in the presence of a health care provider who can answer questions and explain the details. SURGICAL PATHOLOGY REPORT FINAL Patient Name: JN MARIANO Gender: F : 1975 (Age: 48) Address: [address] [place] [address] [place] [address] Hospital #: [id number] Taken:11/08/2024 Received:11/08/2024 Reported: 11/12/2024 Patient Type: [facility] EP SAME Client [facility] Service: Surgery Location: Physician(s): MD Beka Miller M.D. Diagnosis: Anus, left perianal lesion, wedge excision - Superficially invasive squamous cell carcinoma, well differentiated, arising in a background of high-grade squamous intraepithelial lesion (HSIL;AIN 3), p16 positive - Tumor infiltrates to a depth of approximately 0.1 cm - No evidence of lymphovascular or perineural invasion - Lateral and deep resection margins are negative for invasive carcinoma - HSIL present at cauterized lateral tissue margins sjb/11/12/2024 14:21 By this signature, I attest that the above diagnosis is based upon my personal examination of the slides(and/or other material indicated in the diagnosis). Ricco Meyer M.D. Report Electronically Reviewed and Signed Out By Ricco Meyer M.D. 11/12/2024 14:21:57 Microscopic Description and Comment: Microscopic examination substantiates the above cited diagnosis. P16 immunostain (with appropriate control) is performed and shows the in situ invasive components are strongly block positive for p16 expression. This case was shown at intradepartmental GI/Liver pathology consensus conference on 11/12/24, with agreement on the above stated findings and diagnosis. History: The patient is a 48-year-old woman with a history of anal cancer. Operative procedure: EUA rectum with anal biopsy. Specimen(s) Received: A: Left perianal lesion Gross Description: Received in formalin, labeled with the patient's identifiers and left perianal lesion is a single piece of page-pink mucosa measuring 1.0 x 0.7 x 0.4 cm. The resection margin is inked and the specimen is serially sectioned. Labeled A1. Jar [facility]. [facility]/11/08/2024 10:27 PA(s): LY Aponte By this signature, I attest that the above diagnosis is based upon my personal examination of the slides(and/or other material). Addenda/Procedures Microscopic slide review and interpretation for this case was performed at [facility], Department of Surgical Pathology, [address] [facility] [place], [place] [id number], [place] [address] CLIA # [id number] The performance characteristics of some immunohistochemical stains, fluorescence in-situ hybridization tests and immunophenotyping by flow cytometry cited in this report (if any) were determined by the Surgical Pathology and Flow Cytometry Departments at [facility] as part of an ongoing quality lab assoc program and in compliance with federally mandated regulations drawn from the Clinical Laboratory Improvement Act of 1988 (CLIA '88). Some of these tests rely on the use of analyte specific reagents and are subject to specific labeling requirements by the US Food and Drug Administration. Such diagnostic tests may only be performed in a facility that is certified by the Department of Health and Human Services as a high complexity laboratory under CLIA '88. The FDA has determined that such clearance or approval is not necessary. This test is used for clinical purposes. It should not be regarded as investigational or for research. Nevertheless, federal rules concerning the medical use of analyte specific reagents require that the following disclaimer be attached to the report: This test was developed and its performance characteristics determined by the Surgical Pathology and Flow Cytometry Departments of [facility]. It has not been cleared or approved by the U. S. Food and Drug Administration. IMAGES AND SCANNED DOCUMENTS, IF INCLUDED, ONLY VIEWABLE IN PDF VERSION OF REPORT us Sudhakar Lowery MD LAB PATHOLOGY ORDERABLE S Final Result PATHOLOGY [facility] [phone] * Pap and High Risk HPV and Genotyping (Cytology Component) (03/13/2024 4:47 PM CDT) Thin prep (Pap test) 03/13/2024 4:47 PM CDT 03/13/2024 7:43 PM CDT Narrative PATHOLOGY [facility] - 03/20/2024 1:45 PM CDT EPIC results best viewed via link to PDF [facility] [place] [address] Note to Patients: This report may contain a detailed description of human tissue sent by a health care provider to the laboratory for pathologic evaluation. The content of this report is essential for diagnosis and may provide important critical findings. This information may be unfamiliar to patients to review without a medical professional present. It is advised that the patient review this report in the presence of a health care provider who can answer questions and explain the details. CYTOPATHOLOGY REPORT FINAL Patient Name: JN MARIANO Gender: F : 1975 (Age: 48) Address: [address] [place], [place] [address] [address] Hospital #: [id number] Service: [employer] Location: Patient Type: [facility] SPECIMEN Taken: 03/13/2024 Received: 03/13/2024 Accessioned: 03/14/2024 Reported: 03/20/2024 Physician(s): Sara Lamb M.D. FINAL INTERPRETATION SOURCE OF SPECIMEN Liquid based Thin Prep pap with HPV: STATEMENT OF ADEQUACY - Satisfactory for evaluation - Endocervical cells/transformation zone sample absent GENERAL CATEGORIZATION: - Negative for squamous intraepithelial lesion or malignancy Comments (Abnormal-Positive for High Risk HPV) HPV HR 16- DETECTED HPV HR 18- NOT DETECTED HPV HR NON 16/18- NOT DETECTED Interpretive Data Nucleic acid amplification for detection of high-risk Human Papilloma virus (HPV) is performed by the Ena Samantha 6800 HPV test. This assay specifically detects HPV-16 and HPV-18 genotypes. The following HPV genotypes are detected as high-risk HPV: HPV-31, 33, 35, 39, 45, 51, 52, 56, 58, 59, 66, and 68. This assay has been approved by the [place] Food and Drug Administration for detection of HPV in cervical specimens collected by a physician using an endocervical brush/spatula or cervical broom and placed in the ThinPrep Pap Test PreservCyt collection containers. The performance characteristics of this test have been verified by the [facility] Infectious Disease laboratory. Correlate with reported cytology results, as applicable. Interpretive data last revised 23 naya/03/20/2024 13:45 AMERICA Rausch(ASCP) Report Electronically Reviewed and Signed Out By AMERICA Rausch(ASCP) 03/20/2024 13:45:05 Cervicovaginal Cytology (Pap Test) Disclaimer: The Pap test is a screening test used to detect cervical cancer and its precursors; it is not a diagnostic procedure. False negative and false positive results do occur. Pap test results should be interpreted in the context of pertinent clinical information and biopsy results as indicated. CMS Clinical Laboratory Improvement Amendments (CLIA) mandate that cytologic and histologic results be correlated for laboratory quality lab assoc & improvement standards. FOR ALL HIGH-GRADE CASES we request submission of follow-up histological material and/or reports that have not been previously provided so that we may fulfill said required standards. Gross Description A. Liquid based Thin Prep pap with HPV: Cervical/vaginal - Screening ThinPrep Clinical Diagnosis and History Last Menstrual Period: HX HPV+ pap The patient is a 48 year old female with primary vulvar squamous cell carcinoma. Report Images and scanned documents, if included only viewable in PDF version The performance characteristics of some immunohistochemical stains, in-situ hybridization and fluorescence in-situ hybridization tests and immunophenotyping by flow cytometry cited in this report (if any) were determined by the Surgical Pathology Department at [facility] as part of an ongoing quality lab assoc program and in compliance with federally mandated regulations drawn from the Clinical Laboratory Improvement Act of 1988 (CLIA '88). Some of these tests rely on the use of analyte specific reagents and are subject to specific labeling requirements by the US Food and Drug Administration. Such diagnostic tests may only be performed in a facility that is certified by the Department of Health and Human Services as a high complexity laboratory under CLIA '88. The FDA has determined that such clearance or approval is not necessary. This test is used for clinical purposes. It should not be regarded as investigational or for research. Nevertheless, federal rules concerning the medical use of analyte specific reagents require that the following disclaimer be attached to the report: This test was developed and its performance characteristics determined by the Surgical Pathology Department of [facility]. It has not been cleared or approved by the U. S. Food and Drug Administration. Sara Lamb MD LAB CYTOLOGY ORDERABLES Final Result PATHOLOGY [facility] 3rd Floor [place], [place] [phone] from Last 3 Months or Most Recently Relevant to Health Maintenance Insurance [employer] [place] [facility] Advance Directives For more information, please contact: [phone] * Full Code (Latest Code Status on File) Date Activated Date Inactivated Comments 03/31/2019 3:55 PM 04/02/2019 9:09 PM Care Teams Fitness Club Manager Relationship Specialty Start Date End Date Beka Moss MD [address] [place] [address] PCP - General Family Medicine 06/01/21 Emily Mcelroy MD [address] [place] [address] 09/15/16 Sudhakar Lowery MD [address] [place] [address] Surgeon Colon and Rectal Surgery 09/15/21 Maria Isabel Temple MD [address] [facility] [phone] [place] [address] Referring Physician Gynecologic Oncology 09/16/21
--- OUTSIDE RECORDS SUMMARY | 2024-12-04 14:21 | XMS_ITS ---
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 States mood has been stable but with some anxiety recently. Provided prescription for ativan on 01/10/18. 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 Past Treatment and Therapy Plans No past plan information found. Lifetime Dose Tracking * Chemical Lifetime Dose Automatic Entry Manual Entr y DLP 1,038 mGycm 1,038 mGycm 0 mGycm Resolved Problems Problem Noted Date Diagnosed Date [...] gabapentin to 600 TID. Encouraged patient to sweet pickle maker lidocaine from the pharmacy. 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
--- OUTSIDE RECORDS SUMMARY | 2024-12-04 14:21 | XMS_ITS | Patient Health Record ---
Author Organization Formerly [facility] Address [address] [place] [address] Care Team Providers Care Chief Of Surgery Name Role Phone Marissa Rivera Primary Care Provi yun [phone] Lalitha Calderón Unavailable [phone] Allergies Allergen (clinical drug ingredient) Drug/Non Drug Allergy documented on EMR Reaction Allergy Type Onset Date Status Watermelon Flavor Unknown Drug Allergy Active Bee Sting Unknown Allergy Active codeine Codeine Unknown Drug Allergy Active epinephrine Epinephrine Unknown Drug Allergy Act ignacio Reason For Referral No Information Medications Medication SIG (Take, Route, Frequency, Duration) Notes Start Date End Date Status traZODone HCl 50 MG TAKE 1 TO 2 TABLETS BY MOUTH EVERY DAY AT BEDTIME NEEDED for 30 needs appt Active Paxil 20 MG 1 tablet in the morn ing Orally Once a day for 30 day(s) Not-Taking Gabapentin 300 MG 3 tablets Orally thr ee times a day Active Abilify 10 MG 1 tablet Orally Once a day for 30 Active Ibuprofen 400 MG 1 tablet with food o r milk as needed Orally Three times a day Active Remeron 30 MG 1 tablet at bedtime Orally Once a day for 30 day(s) Not-Taking oxyCODONE HCl 5 MG 1 tablet as needed Orally every 4 hrs Active Abilify 5 MG 1 tablet Orally Once a day for 14 days then increase to 10mg daily for 14 days 11/30/2020 Active KlonoPIN 1 MG 1 tablet Orally Once a day Not-Taking PROzac 20 MG 1 capsule Orally Onc e a day for 30 day(s) Not-Taking SEROquel 100 MG 1 tablet at bedtime Orally Once a day for 30 day(s) Not-Taking Xanax 0.25 MG 1 tablet Orally Twic e a day Not-Taking Zoloft 100 MG 1 tablet Orally Once a day for 30 day(s) Not-Taking Depakote ER 500 MG 1 tablet Orally Once a day for 30 day(s) Not-Taking Problems Problem Type SNOMED Code ICD Code Onset Dates Problem Status W/U Status Risk Notes Problem Generalized anxiety disorder (67305943) AURELIO (generalized anxiety disorder) (F41.1) Active confirmed Problem Major depressive disorder (933166055) MDD (major depressive disorder) (F32.9) Active confirmed Plan Of Treatment No Information Insurance Providers Payer Name Payer Address Payer Phone Subscriber Number Group Number Insured Name Patient Relationship to Insured Coverage Start Date Coverage End Date [address] [phone] [id number] Judy Luis Self - patient is the insured 1 Medical (General) History Medical History History ICD Code Bartholin cancer asthma COPD chemo and radiation Surgical History Surgery Date(Month/Year) right leg amputation 09/2020 tumor removal vulvar cancer cyst removal ( multiple) c section x 2 Hospitalization History Reason Date(Month/Year) child for HI/SI, admitted to [facility] er I said I wanted to kill the cancer doctors 2017
--- OUTSIDE RECORDS SUMMARY | 2024-12-04 14:21 | XMS_ITS | Encounter Summary ---
Author Organization [facility] Address [address] [place] [address] Care Team Providers Care Thread Dresser Name Role Phone Beka Moss MD Primary Care Provider [phone] Encounter Details Date Type Department Care Team (Late st Contact Info) Description 11/16/2020 Telephone [facility] [address] [place] [address] Jayne Mao MD [address] [place] [id number] Social History Tobacco Use Types Packs/Day Years Used Date Smoking Tobacco: Former Cigarettes 0.3 30 0 11/09/1990 - 11/09/2020 Smokeless Tobacco: Never Alcohol Use Standard Drinks/Week Comments Not Currently 0 (1 standard drink = 0.6 oz pur e alcohol) AUDIT-C Answer Date Recorded Frequency of Alcohol Consumption Never 03/29/2019 Average Number of Drinks Not on file 019 Frequency of Binge Drinking Not on file 03/17 Comments No Sex and Gender Information Value Date Recorded Sex Assigned at Not on file 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 Answer Date of Assessment Author No 11/10/2020 11:30 AM CDT Brianna Amezquita RN * Is person blind or have serious difficulty seeing? Answer Date of Assessment Author No 11/10/2020 11:30 AM CDT Brianna Amezquita RN * Does person have serious difficulty walking/climbing stairs? Answer Date of Assessment Author Yes 11/10/2020 11:30 AM CDT Brianna Amezquita RN * Does person have difficulty dressing/bathing? Answer Date of Assessment Author No 11/10/2020 11:30 AM CDT Brianna Amezquita RN * Does person have difficulty doing errands alone? Answer Date of Assessment Author No 11/10/2020 11:30 AM ARMANDOT Brianna Amezquita RN documented as of this encounter Mental Status * Does person have difficulty concentrating/remembering/making decisions? Answer Entry Date Author No 11/10/2020 11:30 AM ARMANDOT Brianna Amezquita RN documented in this encounter Plan of Treatment Not on file documented as of this encounter Visit Diagnoses Not on filedocumented in this encounter Additional Health Concerns Infection Onset Date Last Indicated Resolved Time COVID-19 Under Investigation 12/01/2020 12/01/2020 12/01/2020 8:41 PM CDT documented as of this encounter Care Teams Thread Dresser Relationship Specialty Start Date End Date Beka Moss MD PCP - General 04/05/19 documented as of this encounter
--- OUTSIDE RECORDS SUMMARY | 2024-12-04 14:21 | XMS_ITS | Clinical Summary ---
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 States mood has been stable but with some anxiety recently. Provided prescription for ativan on 01/10/18. Of note, pt continues to request xanax and has been counseled numerous times, most recently 01/10/18, that she will not be provided xanax from emr implementation specialist oncology and has follow up with psychiatry [...] S/p extensive counseling on tobacco cessation by SITE LEASING AGENT ONC and vascular - Congratulated on decreased [...] gabapentin to 600 TID. Encouraged patient to pickle maker lidocaine from the pharmacy. 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 12/21/2007 12/26/2018 Encounters Date Type Department Care Team Description 12/02/2024 Telephone [facility] Surgery [address] [facility] Floor [address] [place] [address] Jacinta Hogan BS Reschedule (12/02/24 colonoscopy ) 12/02/2024 Hospital Encounter [facility] Operating Room [address] [place] [address] Sudhakar Lowery MD 11/28/2024 Telephone [facility] Surgery [address] [place] [address] Daysi Marin, RMChelsi Colonoscopy 11/08/2024 8:03 AM CDT Anesthesia Event [facility] Operating Room [address] [place] [address] Bonnie French MD Fischer, Elissa U., NP 11/08/2024 8:00 AM CDT - 11/08/2024 8:45 AM CDT Surgery [facility] Operating Room [address] [place] [address] Sudhakar Lowery MD EXAM UNDER ANESTHESIA - RECTUM 11/08/2024 5:55 AM CDT - 11/08/2024 9:16 AM CDT Hospital Encounter [facility] Operating Room [address] [place] [address] Sudhakar Lowery MD History of anal cancer Discharge Disposition: Discharge to home or self care 11/07/2024 Telephone [facility] Surgery [address] [place] [address] [address] [place] [phone] Ana M Gil RMA Surgery Confirmation 10/16/2024 9:15 AM CDT Office Visit [facility] Surgery [address] [place] [address] [address] [place] [phone] Sudhakar Lowery MD Anal lesion (Primary Dx) from Last 3 Months Surgical History Surgery Date Site/Laterality Comments IR FINE NEEDLE ASPIRATION W IMAGE GUIDANCE 09/02/2016 N/A IR FINE NEEDLE ASPIRATION W IMAGE GUIDANCE 08/19/2016 N/A Bartholin Gland Carcinoma (had radiation and chemo for 6 weeks) RADICAL VULVECTOMY 07/17/2016 - 07/16/2017 HYSTERECTOMY 07/17/2002 - 07/16/2003 SECTION 07/17/1999 - 07/16/2000 1998 BELOW KNEE LEG AMPUTATION 09/30/2020 Right COLONOSCOPY ABOVE KNEE LEG AMPUTATION 01/12/2021 Right Radiation induced vascular issues. Pt reports has prosthesis-does not use ANAL EXAMINATION UNDER ANESTHESIA 09/24/2021 with excisional biopsies of to left sided lesions at the anal verge/perianal skin PORT PLACEMENT CHEST >5 YEARS 10/21/2019 N/A AORTA - BILATERAL FEMORAL ARTERY BYPASS GRAFT 07/17/2019 - 07/16/2020 FEMORAL ARTERY - POPLITEAL ARTERY BYPASS GRAFT 07/17/2018 - 07/16/2019 Right re-do 2020 THROMBECTOMY 07/17/2019 - 07/16/2020 LLE ABOVE KNEE LEG AMPUTATION 07/17/2021 - 07/16/2022 revision EXAMINATION UNDER ANESTHESIA 04/12/2024 [facility] 11/22/2024 Left left buttock Medical History Medical History Date Comments Peripheral vascular disease Iraheta's disease Seizure (HCC) past r/t epineph rine; another prior episode w/ xanax withdrawl. 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) Anal cancer (HCC) PAD (peripheral artery disease) Chronic constipation Family History Medical History Relation Name Comments Heart disease Father Peripheral vascular disease Father age 37 had artery bypass for PAD Heart disease Mother onset age 50s but w/ hx IVDU Anesthesia problems Neg Hx Relation Name Status Comments Father Mother Social History Tobacco Use Types Packs/Day Years [...] on file Legal Sex Female 1:21 AM [employer] Gender Identity Female 04/16/2024 6:57 AM CDT Sexual Orientation Straight 04/16/2024 6: 57 AM CDT Obstetrics History Last Filed Vital Signs Vital Sign Reading [...] Description 12/05/2024 8:15 AM CDT Hospital Encounter [facility] Endoscopy [address] [place] [address] Sudhakar Lowery MD [address] [facility] [place] [place] [phone] [place] [address] 12/05/2024 8:15 AM CDT Anesthesia Event [facility] Endoscopy [address] [place] [address] Gaudencio Bailey MD [address] [place] [address] 12/05/2024 8:15 AM CDT - 12/05/2024 9:00 AM CDT Surgery [facility] Endoscopy [address] [place] [address] Sudhakar Lowery MD [address] [facility] [place] [place] [phone] [place] [address] COLONOSCOPY Scheduled Procedures Name Priority Associated Diagnoses Date/Ti me COLONOSCOPY History of anal cancer 12/05/2024 8:15 AM CDT Health Maintenance Due Date Last Done Comments Breast Cancer Screening-Mammogram 1977 Colon Cancer Screening-Colonoscopy 1975 Depression Screening 1975 Hepatitis C Screening 1975 DTaP/Tdap/Td Vaccine (1 - Tdap) 1988 Hepatitis B Screening 12/07/1995 Regular Well Visit/Exam 18-64 12/07/1995 Pneumococcal vaccine <65 (1 of 2 - PCV) 1996 Influenza Vaccine (Season Ended) 2025 Cervical Cancer Screening Discontinued 2023, 03/13/2024, 08/25/2021, Additional history exists HPV Vaccines Aged Out No longer eligi ble based on patient's age to complete this topic Procedures Procedure Name Priority Date/Time Associated Diagnosis Comments SURGICAL PATHOLOGY Routine 11/08/2024 8 :25 AM CDT History of anal cancer BIOPSY [...] n) 11/08/2024 8:25 AM CDT Narrative PATHOLOGY [facility] - 11/12/2024 2:21 PM CDT EPIC results best viewed via link to PDF [facility] [place] [address] Note to Patients: This report may contain [...] Gender: F : 1975 (Age: 48) Address: [facility] [place] [address] [facility] #: [id number] Taken:11/08/2024 Received:11/08/2024 Reported: 11/12/2024 Patient Type: [facility] EP SAME Client [facility] Service: Surgery Location: Physician(s): MD Beka Miller [...] is serially sectioned. Labeled A1. Jar 0. cnewho/11/08/2024 10:27 PA(s): LY Aponte By this signature, I attest that the above diagnosis is based upon my personal examination of the slides(and/or other material). Addenda/Procedures Microscopic slide review and interpretation for this case was performed at [facility], Department of Surgical Pathology, [address] [facility] [place] [id number], [place] [address] CLIA # [id number] The performance characteristics of some immunohistochemical stains, fluorescence in-situ hybridization tests and immunophenotyping by flow cytometry cited in this report (if any) were determined by the Surgical Pathology and Flow Cytometry Departments at [facility] as part of an ongoing supplier quality program and in compliance with federally mandated [...] Surgical Pathology and Flow Cytometry Departments of [facility]. It has not been cleared or approved by the [place]. S. Food and Drug Administration. IMAGES AND SCANNED DOCUMENTS, IF INCLUDED, ONLY VIEWABLE IN PDF VERSION OF REPORT Sudhakar Lowery MD LAB PATHOLOGY ORDERABLE S Final Result PATHOLOGY [facility] [phone] * Pap and High Risk HPV and Genotyping (Cytology Component) (03/13/2024 4:47 PM CDT) Thin prep (Pap test) 03/13/2024 4:47 PM CDT 03/13/2024 7:43 PM CDT Narrative PATHOLOGY [facility] - 03/20/2024 1:45 PM CDT EPIC results best viewed via link to PDF [facility] [place] [address] Note to Patients: This report may contain [...] Gender: F : 1975 (Age: 48) Address: [address] [place] [address] [place] [address] [facility] #: [id number] Service: SITE LEASING AGENT Location: Patient Type: [facility] SPECIMEN Taken: 03/13/2024 Received: 03/13/2024 Accessioned: 03/14/2024 [...] this test have been verified by the [facility] Molecular Infectious Disease laboratory. Correlate with reported [...] clinical information and biopsy results as indicated. [facility] [address] Clinical Laboratory Improvement Amendments (CLIA) mandate that cytologic and histologic results be correlated for laboratory quality control coordinator & improvement standards. FOR ALL HIGH-GRADE CASES [...] determined by the Surgical Pathology Department at [facility] as part of an ongoing supplier quality program and in compliance with federally mandated [...] determined by the Surgical Pathology Department of [facility]. It has not been cleared or approved by the U. S. Food and Drug Administration. Sara Lamb MD LAB CYTOLOGY ORDERABLES Final Result PATHOLOGY [facility] 3rd Floor [place], [place] [phone] from Last 3 Months or Most Recently Relevant to Health Maintenance Insurance [facility] MEDICAID [facility] Advance Directives For more information, please contact: [phone] * Full Code (Latest Code Status on File) Date Activated Date Inactivated Comments 03/31/2019 3:55 PM 04/02/2019 9:09 PM Care Teams Implementation Advisor Relationship Specialty Start Date End Date Beka Moss MD [address] [place] [address] PCP - General Family Medicine 06/01/21 Emily Mcelroy MD [address] [place] [address] 09/15/16 Sudhakar Lowery MD [address] [place] [address] Surgeon Colon and Rectal Surgery 09/15/21 Maria Isabel Temple MD [address] [facility] [place] [phone] [place] [address] Referring Physician Gynecologic Oncology 09/16/21
--- OUTSIDE RECORDS SUMMARY | 2024-12-04 14:21 | XMS_ITS | Clinical Summary ---
Author Organization [facility] Address [address] [place] [address] Care Team Providers Care Primary Products Inspectors Name Role Phone Beka Moss MD Primary Care Provider [phone] Source Comments [facility],non-owned Affiliates and Associated Physician Practices is amultiple site organization consisting of ambulatory clinics and hospital sitesin [place], [place], [place] and [place]. This disclosure is being madepursuant to the Care Everywhere program and may not contain all information available regarding this patient. Last updated [employer] [facility] Allergies Active Allergy Reactions Criticality Noted Date Comments Bee Venom Anaphylaxis,Swelling High 01/10/2019 throat swelling... never to the ER or hospitalized for Citrullus Vulgaris Angioedema High 01/10/[address] compromise this includes watermelon,mushmellons ,cantalope,cucumbers and any vined fruit Codeine Urticaria,Shortness of Breath,Other High 10/17/2008 Swelling of throat..no artifical airway needed Epinephrine Seizures High 12/21/2007 Nylon Other High 12/01/2020 Nylon Stitches burning, blackening of skin Medications * Be aware that medications may not be up to date on this document. Alwaysverify current medications with the patient. omeprazole (PRILOSEC) 20 MG capsule Take 1 (one) capsule by mouth daily before breakfast Active medical marijuana Take 1 bar by mouth once daily as needed (pain) Active albuterol HFA (VENTOLIN HFA) 108 (90 Base) MCG/ACT inhalerIndicati ons:Chronic Obstructive Pulmonary Disease Inhale 2 (two) puffs by mouth as needed for Shortness of Breath Reasons: Chronic Obstructive Lung Disease 1 Inhaler 2 1 Active pregabalin (LYRICA) 100 MG capsule Take 100 mg by mouth once daily Active cyclobenzaprine (FLEXERIL) 10 MG tablet Take 1 (one) tablet by mouth 3 times daily as needed 90 tablet 2 Active docusate sodium (COLACE) 100 MG capsule Take 1 (one) capsule by mouth 2 times daily as needed for Constipation 2 Active Additional Information Patient not taking.Reported on 01/05/2022 polyethylene glycol 3350 (MIRALAX) 17 g packet Take 17 (seventeen) g by mouth once daily as needed for Constipation 2 Active oxyCODONE (OXY-IR) 5 MG capsule Take 1 (one) capsule by mouth every 6 hours as needed for Pain (Take 1 or 2 tablets every 6 hours as needed for pain.) 21 capsule 2 Active acetaminophen (TYLENOL) 325 MG tablet Take 2 (two) tablets by mouth every 6 hours as needed Maximum allowable Acetaminophen amount = 4 Grams (4000 mg) / 24 hours. 2 Active ibuprofen (MOTRIN) 400 MG tablet 1 tablet with food or milk as needed Active amitriptyline (ELAVIL) 50 MG tablet TAKE 1 TABLET BY MOUTH AT BEDTIME FOR NERVE DISEASE 30 tablet 2 2 Active ALPRAZolam (Xanax) 0.5 MG tablet 4 Active DULoxetine (Cymbalta) 30 MG capsule 4 Active Acetaminophen Extra Strength 500 MG TABS 2 Active DULoxetine (Cymbalta) 60 MG capsule 4 Active enoxaparin (Lovenox) 40 MG/0.4ML injection 4 Active levoFLOXacin (Levaquin) 750 MG tablet 4 Active Active Problems Problem Noted Date Diagnosed Date Left wrist pain 12/02/2021 Cellulitis 01/10/2021 Chronic obstructive pulmonary disease 01/10/2021 Encounter for post surgical wound check 01/11/20 21 Below-knee amputation of right lower extremity 0 01/10/2021 Infected prosthetic vascular graft, subsequent e ncounter 11/12/2019 Overview (11/12/2019): Hospital follow-up for infected vascular graft, which was removed. Cultures negative, now on vanco, cefepime, and Flagyl. Assessment & Plan (11/12/2019 11:03 AM CDT): Hospital follow-up for infected vascular graft, which was removed. Cultures negative, now on vanco, cefepime, and Flagyl. Tolerating well, no f/c, n/v/d, or problems with the PICC. Labs reviewed, OK. Saw Dr. Mao recently, incision reportedly looks good. Plan to complete 6 weeks of Rx on 11/26/19. Continue to follow labs, RTC 2 weeks, with plan to remove PICC at that time. 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 States mood has been stable but with some anxiety recently. Provided prescription for ativan on 01/10/18. Of note, pt continues to request xanax and has been counseled numerous times, most recently 01/10/18, that she will not be provided xanax from [facility] and has follow up with psychiatry for further management of anxiety. Has appointment to see psychiatrist 02/2018. Seizure disorder 01/10/2018 Overview (01/01/2020): Last seizure years ago. Not on anti-epileptic medications. Surgical menopause on hormone replacement therap y 01/10/2018 Overview (01/01/2020): - H/o KARIME/RSO -Symptomatic (hot flashes and [...] that patient is unable to get patch. Primary vulvar squamous cell carcinoma 8 Overview (01/01/2020): -s/p cisplatin/external beam radiation and s/p interstitial BT (11/22-11/25/16) -s/p EUA/bilateral modified radical vulvectomy/advancement flaps (01/31/17) -MRI (07/06/17) without evidence of disease. -Last surveillance exam 12/2018 with well healed scarring - Vaginal pap (12/26/2018): NILM, pos HR [...] No gross e/o cancer. No biopsy performed. Plan - The patient follows for [id number] surveillance exams, but is currently following qmonth for management of pain medication. Next exam full surveillance due 11/2019 - Pap with cytology due 12/2019 - Mammogram due, order placed - PFPT/vaginal dilator provided - Clobetasol ointment to irritated ointment - Nicotine patch provided to encourage smoking cessation Vulvar pain 08/17/2017 Overview (01/01/2020): - H/o multiple vulvar resections and wound [...] each future visit Nicotine dependence 12/21/2007 Overview (01/01/2020): - S/p extensive counseling on tobacco cessation by [facility] and vascular - Congratulated on decreased cigarette use from 10 to 2/day and encouraged continued nicotine gum use Acute postoperative pain of extremity Wound infection after surgery Amputation stump complication Family History Medical History Relation Name Comments CAD (Coronary Artery Disease) Father CAD (Coronary Artery Disease) Mother Relation Name Status Comments Father Alive Mother Social History Tobacco Use Types Packs/Day Years Used Date Smoking Tobacco: Every Day Cigarettes 0.3 30 Started: 11/09/1990; Last attempted to quit: 11/09/2020 Smokeless Tobacco: Never Tobacco Cessation:Ready to Q uit: Yes; Counseling Given: Yes Alcohol Use Standard Drinks/Week Comments Not Currently 0 (1 standard drink = 0.6 oz pur e alcohol) AUDIT-C Answer Date Recorded Q1: How often do you have a drink containing alc ohol? Never 12/03/2021 Average Number of Drinks Not on file 022 Frequency of Binge Drinking Not on file 11/15 PHQ-2 Answer Date Recorded PHQ2 TOTAL SCORE 6 11/30/2020 Hunger Vital Sign Answer Date Recorded Within the past 12 months, y ou worried that your food would run out before you got the money to buy more. Never true 12/03/19 22 Within the past 12 months, t he food you bought just didn't last and you didn't have money to get more. Never true 12/02/2021 Comments No Sex and Gender Information Value Date Recorded Sex Assigned at Not on file Legal Sex Female 6:18 AM [employer]W GRADER Gender Identity Not on file Sexual Orientation Choose not to disclose 2020 8:21 AM CDT Last Filed Vital Signs Vital Sign Reading Time Taken Comments Blood Pressure 136/84 08/30/2023 9:30 AM [employer]SAW GRADER Pulse 71 08/30/2023 9:30 AM [employer]SAW GRADER Temperature 36.6 C (97.8 F) 08/30/2023 9:30 AM [employer] GR[employer]ER Respiratory Rate 18 01/05/2022 10:10 AM CDT Oxygen Saturation 99% 08/30/2023 9:30 AM [employer] GRADER Inhaled Oxygen Concentration 21% 01/20/2020 1 0:00 AM CDT Weight 45.8 kg (101 lb) 08/30/2023 9:30 AM [employer]ER Height 162.6 cm (5' 4 ) 08/30/2023 9:30 AM [employer]W GR[employer]ER Body Mass Index 17.34 08/30/2023 9:30 AM [employer]SAW GRADER Plan of Treatment Health Maintenance Due Date Last Done Comments COLOGUARD (AGES 45-75) - COL ON CA SCREENING 1977 COLON MONITORING 1977 COLONOSCOPY - COLON CA SCREENING 1977 CT COLONOGRAPHY - COLON CA SCREENING 1977 Colorectal Cancer Screening 1977 FIT - COLON CA SCREENING 1977 FLEX SIG - COLON CA SCREENING 1977 LIPID TESTING 1977 MAMMOGRAM 1977 Opioid Medication Agreement - Annual 1977 PAP SMEAR 1977 HEPATITIS C SCREENING 12/02/1995 DTAP/TDAP/TD VACCINES (1 - Tdap) 1996 HEPATITIS B VACCINE (1 of 3 - 19+ 3-dose series) 1996 PNEUMOCOCCAL VACCINE (1 of 2 - PCV) 1996 COVID-19 VACCINE (1 - 2023-2 5 season) 2024 INFLUENZA VACCINE (Season Ended) 2025 ZOSTER VACCINE (1 of 2) 12/07/2027 HIV SCREENING Completed 11/16/2020 HIB VACCINE Aged Out No longer eligi ble based on patient's age to complete this topic HPV VACCINE Aged Out No longer eligi ble based on patient's age to complete this topic MENINGOCOCCAL (Group B) VACC INE SHARED DECISION-MAKING Aged Out No longer eligibl e based on patient's age to complete this topic MENINGOCOCCAL GROUPS A/C/Y/W VACCINE Aged Out No longer eligible b ased on patient's age to complete this topic Medical Devices Implanted Type Area National Account Executive Device Identifier Shelf Expiration Date Model / Serial / Lot Graft Cv 6mm 30cm [facility] Polystr 2 Vlr - [id number] Implanted:Qty: 1 on 07/05/2019 by Cortez Fernandez MD at [facility] [employer] 09/14/2023 [id number] / [id number] / [id number] Description:femoral Graft Vasc 7mm 50cm 40cm Hep Propaten - [id number] Implanted:Qty: 1 on 07/05/2019 by Cortez Fernandez MD at [facility] [employer] 04/15/2023 [id number] / [id number] Description:Right popliteal Cryovein Saphenous Vein Human Allograft Implanted:Qty: 1 on 10/15/2019 by Jayne Mao MD at [facility] Right: Leg [employer] 01/16/2029 V010 / [id number] / Cryovein Saphenous Vein Human Allograft Implanted:Qty: 1 on 01/17/2020 by Jayne Mao MD at [facility] [employer] 09/24/2029 V010 / [id number] / [id number] Description:bilateral femora l Cryoartery Femoral - Popliteal Artery Human Allograft Implanted:Qty: 1 on 01/17/2020 by Jayne Mao MD at [facility] [employer] 08/09/2029 R020 / [id number] / Graft Tissue Cryoartery [address] [place] [address] [id number] Implanted:Qty: 1 on 01/17/2020 by Jayne Mao MD at [facility] [employer] 05/06/2029 R010 / [id number] / Procedures Procedure Name Priority Date/Time Associated Diagnosis Comments HIV-1 HIV-2 ANTIGEN/ANTIBODY AM Draw 11/16/2020 2:36 AM CDT from Last 3 Months or Most Recently Relevant to Health Maintenance Results * HIV-1 HIV-2 ANTIGEN/ANTIBODY (11/16/2020 2:36 AM CDT) HIV Antigen/Antibod y 1 & 2 Non-reacti ve Non-react ignacio 11/16/2020 3:52 AM CDT [facility] Comment:Neither HIV-1 p24 An tigen nor HIV-1/HIV-2 Antibodies are detected. Blood BLOOD SPECIMEN / Unknown Lab Venipuncture / Unknown 11/16/2020 2:36 AM CDT 11/16/2020 3:07 AM CDT Jayne Mao MD LAB - HEMATOLOGY ORDERABLES Final Result [facility] [address] [place] [id number], [facility] [phone] from Last 3 Months or Most Recently Relevant to Health Maintenance Insurance 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 Adv Directive/Living Will/POA 04/24/2019 6:16 PM * Full Code (Latest Code Status on File) Date Activated Date Inactivated Comments 12/01/2021 2:15 PM 12/03/2021 12:52 PM * Full Code Date Activated Date Inactivated Comments 01/10/2021 10:14 AM 01/15/2021 7:25 PM * Full Code Date Activated Date Inactivated Comments 12/02/2020 3:37 PM 12/05/2020 1:13 PM * Full Code Date Activated Date Inactivated Comments 09/30/2020 4:28 PM 10/03/2020 1:58 PM * Full Code Date Activated Date Inactivated Comments 01/18/2020 1:50 AM 01/24/2020 12:32 PM Care Teams Primary Products Inspectors Relationship Specialty Start Date End Date Beka Moss MD PCP - General 04/05/19
--- OUTSIDE RECORDS SUMMARY | 2024-12-04 14:21 | XMS_ITS | Continuity of Care Document ---
Author Organization [facility] Address [address] [facility] [place] [address] Phone Care Team Providers Care Price Economist Name Role Phone Beka Moss MD Unavailable Unavailable Allergies, Adverse Reactions, Alerts Substance Reaction Status Criticality epinephrine Active No Information codeine Active No Information Medications Medication Instructions Dosage Effective Dates (start - stop) Status Comments Xanax 0.5 mg tablet take 1 tablet by oral route 2 times every day as needed 0.5 MG - Active avoid drivin g or operate machines omeprazole 20 mg capsule,delayed release take 1 capsule by oral route every day before a meal 20 MG - Active Procedures Procedure Date OFFICE/OUTPATIENT VISIT, EST OFFICE/OUTPATIENT VISIT, EST OFFICE/OUTPATIENT VISIT, EST OFFICE/OUTPATIENT VISIT, EST OFFICE/OUTPATIENT VISIT, EST OFFICE/OUTPATIENT VISIT, EST OFFICE/OUTPATIENT VISIT, EST OFFICE/OUTPATIENT VISIT, EST OFFICE/OUTPATIENT VISIT, EST OFFICE/OUTPATIENT VISIT, EST OFFICE/OUTPATIENT VISIT, EST OFFICE/OUTPATIENT VISIT, EST OFFICE/OUTPATIENT VISIT, EST PREV VISIT, EST, AGE 40-64 OFFICE/OUTPATIENT VISIT, EST OFFICE/OUTPATIENT VISIT, EST OFFICE/OUTPATIENT VISIT, EST OFFICE/OUTPATIENT VISIT, EST PREV VISIT, EST, AGE 40-64 OFFICE/OUTPATIENT VISIT, EST OFFICE/OUTPATIENT VISIT, EST OFFICE/OUTPATIENT VISIT, EST OFFICE/OUTPATIENT VISIT, EST OFFICE/OUTPATIENT VISIT, EST OFFICE/OUTPATIENT VISIT, EST OFFICE/OUTPATIENT VISIT, EST OFFICE/OUTPATIENT VISIT, EST PREV VISIT, EST, AGE 40-64 OFFICE/OUTPATIENT VISIT, EST OFFICE/OUTPATIENT VISIT, EST OFFICE/OUTPATIENT VISIT, EST OFFICE/OUTPATIENT VISIT, EST PREV VISIT, NEW, AGE 40-64 Advance Directives Directive Yes / No Effective Date File Name No Information Encounters Encounter Description Practice Location Reason(s) For Visit Diagnoses Date Provider Providers Copied on Encounter OFFICE/OUTPA TIENT VISIT, [facility], [address] [place], [address], tel:[phone] [facility] anxiety1 (chief complaint) GERD1 (chief complaint) SCC (chief complaint) lymph1 (chief complaint) GERD w/o esophagitisSolitary lung noduleGeneralized Anxiety DisorderNevus, non-neoplasticOsteo peniaLymphadenopath y 5 Ajay Ireland. [address] [place], [place], [address] , [place]. tel:[phone] OFFICE/OUTPA TIENT VISIT, [facility], [address] [place], [address], tel:[phone] [facility] GERD1 (chief complaint) anxiety1 (chief complaint) lung nodule1 (chief complaint) lymph1 (chief complaint) LymphadenopathyGene ralized Anxiety DisorderSolitary lung noduleGERD w/o esophagitisOsteopen iaEncounter for screening for malignant neoplasm of colon 5 Ajay Ireland. [address], [place], [place], [address] , [place]. tel:[phone] OFFICE/OUTPA TIENT VISIT, [facility], [address], [place], [place], [address], [place] tel:[phone] [facility] anxiety1 (chief complaint) GERD1 (chief complaint) lung nodule1 (chief complaint) Generalized Anxiety DisorderGERD w/o esophagitisSolitary lung nodule 5 Ajay Ireland. [address], [place], [place], [address] , [place]. tel:[phone] OFFICE/OUTPA TIENT VISIT, [facility], [address], [place], [place], [address], [place] tel:[phone] [facility] GERD1 (chief complaint) Anxiety1 (chief complaint) cough1 (chief complaint) GERD w/o esophagitisGenerali zed Anxiety DisorderAcute bronchitis 4 Ajay Ireland. [address], [place], [place], [address] , [place]. tel:[phone] OFFICE/OUTPA TIENT VISIT, [facility], [address], [place], [place], [address], [place] tel:[phone] [facility] anxiety1 (chief complaint) lung nodule1 (chief complaint) hydronephr osis1 (chief complaint) Generalized Anxiety DisorderSolitary lung noduleHydronephrosi sMalignant neoplasm of vulva, unspecified 4 Ajay Beka. [address], [place], [place], [address] , [place]. tel:[phone] OFFICE/OUTPA TIENT VISIT, [facility], [address], [place], [place], [address], [place] tel:[phone] [facility] anxiety1 (chief complaint) GERD1 (chief complaint) mammo (chief complaint) Inconclusive mammogramGERD w/o esophagitisGenerali zed Anxiety DisorderAbnormal weight lossPneumonia 4 Ajay Beka. [address], [place], [place], [address] , [place]. tel:[phone] OFFICE/OUTPA TIENT VISIT, [facility], [address], [place], [place], [address], [place] tel:[phone] [facility] anxiety1 (chief complaint) Generalized Anxiety DisorderGERD w/o esophagitis Sadi- 4 Ajay Ireland. [address], [place], [place], [address] , [place]. tel:[phone] OFFICE/OUTPA TIENT VISIT, [facility], [address], [place], [place], [address], [place] tel:[phone] [facility] GERD (chief complaint) GERD1 (chief complaint) anxiety1 (chief complaint) pneumonia1 (chief complaint) polycythem ia1 (chief complaint) Generalized Anxiety DisorderGERD w/o esophagitisPneumoni aSecondary polycythemia 4 Ajay Ireland. [address], [place], [place], [address] , [place]. [phone] OFFICE/OUTPA TIENT VISIT, [facility], [address], [place], [place], [address], [place] tel:[phone] [facility] anxiety1 (chief complaint) GERD1 (chief complaint) GERD w/o esophagitisGenerali zed Anxiety Disorder Oct- 4 Ajay Ireland. [address], [place], [place], [address] , [place]. [phone] OFFICE/OUTPA TIENT VISIT, [facility], [address], [place], [place], [address], [place] tel:[phone] [facility] anxiety1 (chief complaint) pneumonia1 (chief complaint) GI (chief complaint) Generalized Anxiety DisorderPneumoniaEn counter for screening for malignant neoplasm of colonGERD w/o esophagitis Sep- 4 Ajay Ireland. [address], [place], [place], [address] , [place]. tel:[phone] OFFICE/OUTPA TIENT VISIT, [facility], [address], [place], [place], [address], [place] tel:[phone] [facility] KCL (chief complaint) polycythem ia1 (chief complaint) HLP (chief complaint) pneumonia1 (chief complaint) anxiety1 (chief complaint) PneumoniaHyperkalem iaSecondary polycythemiaMixed hyperlipidemiaGener alized Anxiety Disorder 4 Ajay Ireland. [address], [place], [place], [address] , [place]. tel:[phone] OFFICE/OUTPA TIENT VISIT, EST [facility], [address], [place], [place], [address], [place] tel:[phone] [facility] pneumonia1 (chief complaint) Pneumonia 4 Ajay Ireland. [address], [place], [place], [address] , [place]. tel:[phone] OFFICE/OUTPA TIENT VISIT, EST [facility], [address], [place], [place], [address], [place] tel:[phone] [facility] back pain1 (chief complaint) Urinary frequencyAbnormal coagulation profileMuscle spasm of back 4 Ajay Ireland. [address], [place], [place], [address] , [place]. tel:[phone] PREV VISIT, EST, AGE 40-64 [facility], [address], [place], [place], [address], [place] tel:[phone] [facility] physical (chief complaint) Encounter for general adult medical examination without abnormal findings 4 Ajay Ireland. [address], [place], [place], [address] , [place]. tel:[phone] OFFICE/OUTPA TIENT VISIT, EST [facility], [address], [place], [place], [address], [place] tel:[phone] [facility] AKA (chief complaint) Phantom limb syndrome 3 Ajay Ireland. [address], [place], [place], [address] , [place]. tel:[phone] OFFICE/OUTPA TIENT VISIT, EST [facility], [address], [place], [place], [address], [place] tel:[phone] [facility] AKA (chief complaint) Phantom limb syndromeAcquired absence of right leg above kneeMalignant tumor of rectal ampulla 2 Moss Beka. [address], [place], [place], [address] , [place]. tel:[phone] OFFICE/OUTPA TIENT VISIT, EST [facility], [address], [place], [place], [address], [place] tel:[phone] [facility] phantom pain1 (chief complaint) wrist pain1 (chief complaint) Phantom limb syndromePain in left wrist 2 Ajay Ireland. [address], [place], [place], [address] , [place]. [phone] OFFICE/OUTPA TIENT VISIT, EST [facility], [address], [place], [place], [address], [place] tel:[phone] [facility] phantom pain1 (chief complaint) HLP (chief complaint) low D (chief complaint) rectal CA (chief complaint) GERD1 (chief complaint) wrist pain1 (chief complaint) HyperlipidemiaPhant om limb syndromeGERD w/o esophagitisAcquired absence of right leg above kneeVitamin D deficiency, unspecifiedMalignan t tumor of rectal ampullaPain in left wrist 2 Ajay Ireland. [address], [place], [place], [address] , [place]. tel:[phone] PREV VISIT, EST, AGE 40-64 [facility], [address], [place], [place], [address], [place] tel:[phone] [facility] physical (chief complaint) Encounter for general adult medical examination without abnormal findings 2 Ajay Ireland. [address], [place], [place], [address] , [place]. tel:[phone] OFFICE/OUTPA TIENT VISIT, [facility], [address], [place], [place], [address], [place] tel:[phone] [facility] AKA (chief complaint) GERD1 (chief complaint) HLP (chief complaint) anemia1 (chief complaint) Phantom limb syndromeGERD w/o esophagitisAcquired absence of right leg above kneeHyperlipidemiaA nemiaVitamin D deficiency, unspecified 1 Ajay Ireland. [address], [place], [place], [address] , [place]. tel:[phone] OFFICE/OUTPA TIENT VISIT, [facility], [address], [place], [place], [address], [place] tel:[phone] [facility] AKA (chief complaint) Phantom limb syndrome with painAbnormalities of gaitAcquired absence of right leg above knee 1 Ajay Ireland. [address], [place], [place], [address] , [place]. tel:[phone] OFFICE/OUTPA TIENT VISIT, [facility], [address], [place], [place], [address], [place] tel:[phone] [facility] Well child HPI (chief complaint) COVID (chief complaint) Viral infection 1 Ajay Ireland. [address], [place], [place], [address] , [place]. tel:[phone] OFFICE/OUTPA TIENT VISIT, [facility], [address], [place], [place], [address], [place] tel:[phone] [facility] abd pain1 (chief complaint) AKA (chief complaint) Abdominal painAcquired absence of right leg above kneePhantom limb syndrome with pain 1 Ajay Ireland. [address], [place], [place], [address] , [place]. tel:[phone] OFFICE/OUTPA TIENT VISIT, [facility], [address], [place], [place], [address], [place] tel:[phone] [facility] phantom pain1 (chief complaint) cough1 (chief complaint) nausea1 (chief complaint) Phantom limb syndromeAcquired absence of right leg below kneeAcute bronchitisNausea 1 Ajay Silverio [address], [place], [place], [address] , [place]. tel:[phone] OFFICE/OUTPA TIENT VISIT, [facility], [address] [place], [address], [place] tel:[phone] [facility] knee pain1 (chief complaint) pain1 (chief complaint) GERD1 (chief complaint) GERD w/o esophagitisAcquired absence of right leg below kneePhantom limb syndrome 1 Ajay Silverio [address], [place], [place], [address] , [place]. [phone] OFFICE/OUTPA TIENT VISIT, [facility], [address] [place], [address], [place] tel:[phone] [facility] pain (chief complaint) anxiety1 (chief complaint) Acquired absence of right leg below kneeGeneralized Anxiety Disorder 1 Ajay Silverio [address], [place], [place], [address] , [place]. [phone] OFFICE/OUTPA TIENT VISIT, [facility], [address] [place], [address], [place] tel:[phone] [facility] pain (chief complaint) anxiety1 (chief complaint) HLP (chief complaint) GERD1 (chief complaint) Acquired absence of right leg below kneeGERD w/o esophagitisHyperlip idemiaGeneralized Anxiety Disorder 1 Ajay Silverio [address], [place], [place], [address] , [place]. tel:[phone] PREV VISIT, EST, AGE 40-64 [facility], [address], [place], [place], [address], [place] [phone] [facility] physical (chief complaint) Encounter for general adult medical examination without abnormal findings 1 Ajay Silverio [address], [place], [place], [address] , [place]. tel:[phone] OFFICE/OUTPA TIENT VISIT, [facility], [address], [place], [address], [place] tel:[phone] [facility] HLP (chief complaint) GERD1 (chief complaint) coaguloapt hy1 (chief complaint) anemia1 (chief complaint) HyperlipidemiaPerip heral vascular disease, unspecifiedGERD w/o esophagitisAnemia 0 Ajay Silverio [address], [place], [place], [address] , [place]. tel:[phone] OFFICE/OUTPA TIENT VISIT, [facility], [address], [place], [place], [address], [place] [phone] [facility] PAD (chief complaint) HLP (chief complaint) GERD1 (chief complaint) Peripheral vascular disease, unspecifiedHyperlip idemiaGERD w/o esophagitisEncounte r for oth screening for malignant neoplasm of breast 201 9 Ajay Silverio [address], [place], [place], [address] , [place]. [phone] Referring Provider: Jos Kaur [address], [place], [place], [address]. tel:[phone] OFFICE/OUTPA TIENT VISIT, [facility], [address], [place], [place], [address], [place] tel:[phone] [facility] chronic pain (chief complaint) anxiety1 (chief complaint) HLP (chief complaint) GERD1 (chief complaint) Chronic pain syndromeHyperlipide miaGERD w/o esophagitisGenerali zed Anxiety Disorder 9 Ajay Ireland. [address] [place], [place], [address] , [place]. [phone] Referring Provider: Beka Moss, [address] [place], [place], [address]. tel:[phone] OFFICE/OUTPA TIENT VISIT, [facility], [address] [place], [place], [address], [place] tel:[phone] [facility] HLP (chief complaint) D (chief complaint) PAD (chief complaint) chronic pain1 (chief complaint) HyperlipidemiaVitam in D deficiency, unspecifiedNeuropat hyPeripheral vascular disease, unspecifiedChronic pain syndrome 9 Ajay Ireland. [address] [facility] [place], [address] , [place]. [phone] PREV VISIT, NEW, AGE 40-64 [facility], [address] [place], [place], [address], [place] tel:[phone] [facility] PHysical (chief complaint) Encntr for general adult medical exam w/o abnormal findings 9 Ajay Ireland. [address], [place], [address] , [place]. [phone] Family History Family Member Type Diagnosis Age At Onset Mother Problem (finding) of heart disease 6 0s Father Problem (finding) Alive and well Father Problem (finding) Coronary artery disease 33 Brother Problem (finding) not sure Payers Payer name Insurance type Covered green party ID Authorkraig lópez(s) [facility] [id number] Social History Type Description Quantity Date Captured Comments Alcohol Use Details No Caffeine Use Details Unknown Tobacco Use Status Very heavy cigarette smoker (40+ cigs/day) Smoking Status Heavy tobacco smoker Sex Female Vital Signs Date / Time: Height Weight BMI Pulse Rate Blood Pressure Temperature Respiratory Rate Body Surface Area Head Circumference BMI percentile Pulse Ox Inhaled Ox 9:40 AM 64.00 in 92.80 lbs 15.9 3 kg/m eter (2) 78 /min 120/80 mm[Hg] 98.0 F 16 /min Chief Complaint And Reason For Visit From encounter dated '11/27/2024 09:35'. anxiety1 (chief complaint). Description: Pt has chronic anxiety. Pt denies any depression or any suicidal or homicidal thought Pt denies any crying spells. Pt takes xanax PRN GERD1 (chief complaint). Description: Pt has chronic GERD Pt doing o with omeprazole SCC (chief complaint). 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 Pt will have colonoscopy soon lymph1 (chief complaint). Description: Pt notices a swelling lymph node left cervical area for several months. Pt denies any sore throat. Plan Of Treatment Date Type Action Status Goal Tobacco cessation counseling completed Goal Tobacco cessation counseling completed Goal Tobacco cessation counseling completed Goal Tobacco cessation counseling completed Referral Referred To: Jay Ashton [address] [place] [address], [phone] Ordered: Referrals: Jay Ashton. Evaluate and treat ordered Referral Ordered: CT THORAX W/O DYE ordered Referral Ordered: MAMMOGRAM, BOTH BREASTS ordered Referral Ordered: COLONOSCOPY AND BIOPSY ordered Referral Ordered: CHEST X-RAY PA/LAT TWO-VIEWS ordered Referral Ordered: CT PULMONARY ordered Referral Ordered: WRIST XRAY 2 VIEWS Left ordered Referral Ordered: Physical Therapy (related to Acquired absence of right leg above knee) ordered Referral Referred To: Physical Therapy Ordered: Referrals: Physical Therapy. Evaluate and treat ordered Referral Ordered: Pain Medicine (related to Phantom limb syndrome) ordered Referral Ordered: Referrals: Pain Medicine. Evaluate and treat ordered Referral Ordered: US EXAM, ABDOM, COMPLETE ordered Referral Ordered: DXA BONE DENSITY, AXIAL ordered Referral Ordered: Vascular Surgery (related to Peripheral vascular disease, unspecified) ordered Referral Ordered: Referrals: Vascular Surgery. Evaluate and treat ordered Referral Ordered: MAMMOGRAM, SCREENING ordered Referral Ordered: OPERATIVE UPPER GI ENDOSCOPY ordered Appointment Judy Luis BOOKED History Of Present Illness Encounter Date Complaint History Of Prese nt Illness anxiety1 Pt has chronic a nxiety. Pt denies any depression or any suicidal or homicidal thought Pt denies any crying spells. 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 Pt will have colonoscopy soon lymph1 Pt notices a swe lling lymph node left cervical area for several months. Pt denies any sore throat. GERD1 Pt has chronic G ERD. pt doing ok with omeprazole. Pt denies any abd pain anxiety1 Pt has chronic a nxiety Pt denies any depression or any suicidal or homicidal thought Pt denies any crying spells. Pt takes xanax PRn and doing ok lung nodule1 Pt has lung nodu le. Pt denies any hemoptysis, sob or cough lymph1 Pt notices some slightly tender lymph node left cervical area for several months. Pt denies any sore throat, fever, etc anxiety1 Pt has chronic a nxiety Pt takes xanax PRn and doing ok pt denies any depression or any suicidal or homicidal thought Pt denies any crying spells GERD1 Pt has chronic G ERD Pt had benign EGD pt doing ok with omeprazole. lung nodule1 Pt has lung nodu le Pt is long time smoker Pt denies any hemoptysis, sob or cough cough1 Pt c/o persisten t productive cough for two weeks Pt denies any chest pain or sob. Pt denies any fever GERD1 Pt has chronic G ERD Pt doing ok with omeprazole. pt denies any abd pain Anxiety1 Pt has chronic a nxiety Pt denies any depression or any suicidal or homicidal thought pt denies any crying spells . anxiety1 Pt has chronic a nxiety Pt no longer feels depressed and she is off cymbalta. Pt denies any suicidal or homicidal thought .Pt denies any crying spells lung nodule1 Pt has 6 mm lung nodule on recent CT. Pt denies any hemoptysis sob or cough Pt is a smoker. hydronephrosis1 Pth as severe ri ght side hydronephrosis with cortical atrophy. 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 Pt denies any flank pain anxiety1 Pt has chronic a nxiety and depression Pt takes cymbalta and xanax PRN and doing ok Pt denies any suicidal or homicidal thought Pt denies any crying spells GERD1 Pt has chronic G ERD Pt takes omeprazole and doing ok mammo Pt had screening mammo done which showed asymmetry both breast. Pt denies any palpable breast nodule or pain anxiety1 Pt has chronic a nxiety and depression Pt takes cymbalta and xanax PRn and doing ok Pt denies any suicidal or homicidal thought Pt denies any crying spells anxiety1 Pt has chronic a nxiety and depression Pt takes cymbalta and xanax PRn and doing ok Pt denies any suicidal or homicidal thought Pt denies any crying spells polycythemia1 Pt has polycythe ron Pt is heavy smoker. Pt denies any snoring at night GERD GERD1 Pt has chronic G ERD Pt doing ok with omeprazole. Pt denies any abd pain or nausea. pneumonia1 Pt has history o f pneumonia Pt denies any cough, fever, chill or sob Pt has not done repeat chest x ray yet anxiety1 P has chronic an xiety and depression Pt doing well with cymbalta and xanax RN ,Pt needs refill. Pt denies any suicidal or homicidal thought Pt denies any crying spells GERD1 Pt has chronic G ERD Pt doing ok with omeprazole. Pt needs it refilled. anxiety1 P has chronic an xiety and depression Pt doing well with cymbalta and xanax RN ,Pt needs refill. Pt denies any suicidal or homicidal thought Pt denies any crying spells pneumonia1 Pt denies any fe trina, chill, chest pain, sob or cough. pt did have pneumonia s/p treatment .Pt has not done chest xray yet GI Pt has chronic G ERD Pt takes omeprazole and doing ok. Pt denies any lower GI issue anxiety1 Pt has chronic a nxiety and depression Pt states that cymbalta is not helping with her depression Pt states that xanax is helping her insomnia and anxiety. Pt denies any suicidal or homicidal thought pt denies any crying spells polycythemia1 Pt has polycythe ron. Pt does smoke. HLP Pt has HLP Pt st ates that she is not on any diet pneumonia1 Pt took abx and upper back pain resolved Pt denies any hemoptysis, sob or cough or fever or chest pain KCL Pt has high KCL pt denies any abd pain or sob or palpitation pneumonia1 Pt c/o pleuritic bilateral upper back pain for several weeks Pt denies any fever, chill, chest pain, sob, etc. Pt had CTA pulmonary done which did not show PE but did demonstrated bilateral lower lobe pneumonia. back pain1 Pt c/o bilateral lower back/flank area pain since one week ago. Pt denies any chest pain or sob. Pt notices some urinary frequency lately. Pt denies any abd pain Pt has been traveling in the car a lot lately and she just returned home from [place] last night. Pt denies any sciatica or any loss of bowel or bladder control. Pt states that the pain is sharp and around bilateral flank area and worse with breathing Pt denies any calf pain . physical Pt needs annual physical pt c/o bilateral lower back pain since one week ago Pt denies any chest pain or sob. Pt notices some urinary frequency lately. Pt denies any abd pain Pt has been traveling in the car a lot lately and she just returned home from [place] last night. Pt also c/o not able to sleep at night due to stress and anxiety and depression Pt denies any suicidal or homicidal thought Pt denies any crying spells Pt also has chronic right AKA pain. Pt states that she notices worsening pain around bilateral lower back area when she takes a deep breath. Pt also c/o midepigastric abdominal pain when she eats Pt has GERD and she feels chronic nausea as well. 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 Pt needs a referral for the mobility Ketto to adjust the sleeve and also the prosthesis. Pt is off opioid and lyrica. She is doing ok currently AKA Pt is s/p right AKA two months ago and the staple was removed 3 weeks ago. Pt was using a prosthesis before but due to revision surgery, she needs a replacement socket for better fit. Her current socket no longer fit her AKA site. Pt is currently healed from AKA surgery and is ready to be fitted with a prosthetic. Pt has been compliant with compression therapy. She was using her prosthetic daily before the revision surgery. Her daily activities includes taking care of her house and climbing stairs to get in and out of her house. she is a K 3 level ambulator. The prognosis for the prosthetic is good and should not impede or harm her overall health. Pt has chronic right phantom pain. Pt is on lyrica 100 mg BID but is not helping very much .Pt denies any redness or warmth or drainage. Pt denies any fever. Pt states that her ortho cleared her post surgery wrist pain1 pt fell on left wrist area 4 months ago and she c/o recurrent left wrist pain. Pt denies any redness or warmth or swelling Pt does have history of left carpal tunnel but she denies any numbness or tingling Pt uses wheel chair so she extends her left wrist frequently and notices worsening pain around left wrist area with certain motion. Pt told me she had negative left wrist x ray while inpatient recently phantom pain1 Pt has chronic r ight phantom pain. Pt just underwent right AKA revision. Pt was given 20 oxycodone for pain post op and she has only two pills left. Pt takes lyrica for pain. Pt states that her pain is not well controlled phantom pain1 Pt has AKA right leg with chronic phantom pain Pt states that she notices a ? bone spur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
--- OUTSIDE RECORDS SUMMARY | 2024-12-04 14:21 | XMS_ITS ---
Author Organization [facility] Address [address] [place] [address] Care Team Providers Care Line Up Machine Operator Name Role Phone Beka Moss MD Primary Care Provider [phone] Active Problems Problem Noted Date Diagnosed Date [...] she will not be provided xanax from type copy examiner oncology and has follow up with psychiatry [...] performed. Plan - The patient follows for [id number] surveillance exams, but is currently following [facility] for management of pain medication. Next exam [...] S/p extensive counseling on tobacco cessation by BENCH ASSEMBLY INSPECTOR ONC and vascular - Congratulated on decreased cigarette use from 10 to 2/day and encouraged continued nicotine gum use Acute postoperative pain of extremity Wound infection after surgery Amputation stump complication Current Treatment and Therapy Plans No current plan information found. Past Treatment and Therapy Plans No past plan information found. Lifetime Dose Tracking * Chemical Lifetime Dose Automatic Entry Manual Entr y Dose Length Product 3,062 mGy-cm 3,062 mGy-cm 0 mGy-cm
== END 2024-12-04 14:14 | disposition home or self-care (01) ==
LOC: ANHIMG 14:13
PROVIDERS: PCP Emergency Medicine; Visit Provider Emergency Medicine
DX: R91.1 Solitary pulmonary nodule (principal); N13.39 Other hydronephrosis; N28.89 Other specified disorders of kidney and ureter
CPT/HCPCS: 71250

== ENCOUNTER 2025-05-19 10:09 | Emergency (ER) | payer OTHER, SELFPAY ==
[2025-05-19] VITALS (26 sets, daily range): BP systolic 119–195; BP diastolic 82–112; PULSE 86–132; RESP 12–34; TEMP 36.9–37.1; O2SAT 90–100
--- NOTE | ~2025-05-19 | CT_ITS ---
CTA CHEST CLINICAL HISTORY: georgina, hypoxic, tachy . COMPARISON: Chest x-ray today CT chest 12/04/2024 TECHNIQUE: Helical CTA performed from thoracic inlet to upper abdomen IV contrast information not in PACS Coronal, sagittal reformats. Multiplanar MIPS CT images acquired with automatic exposure control for dose reduction DLP: 154 mGy-cm FINDINGS: Pulmonary arteries: No PE. Thoracic Aorta: No dissection or aneurysm. Atherosclerotic disease Heart/pericardium: Unremarkable. RV/LV ratio: Normal. Lungs/Pleura: Small foci of endobronchial airspace disease bilaterally. Tracheobronchial tree: Right basilar mucous plugging. Bronchial wall thickening. Nodes: Small right hilar nodes. Bones: No acute bony abnormality. Soft tissues: Unremarkable. Visualized upper abdomen: Chronic hydronephrosis right kidney, with cortical thinning. IMPRESSION: 1. No PE. 2. Small scattered bilateral foci of aspiration and/or infection. 3. Additional findings as above. Reviewed, dictated and finalized at location R. S CLERK SUPERVISOR
--- NOTE | ~2025-05-19 | XR_ITS ---
EXAMINATION: XR chest 1V portable COMPARISON: No comparisons available. HISTORY: MARCELA, hypoxic, CHEST PAIN FINDINGS: The lungs are clear, no effusion. No pneumothorax. Heart is normal size. Mediastinal and hilar contours are within normal limits. Bony thorax no acute abnormality. Miscellaneous: None Impression: No acute cardiopulmonary abnormality. Reviewed, dictated and finalized at location P. E FIXER Impression: No acute cardiopulmonary abnormality.
--- NOTE | 2025-05-19 10:13 | ECG_ITS ---
Test Date: 2025-05-19 10:21:40 Measurements Intervals [place] Rate: 104 P: 82 GA: 115 QRS: 116 QRSD: 66 T: 71 QT: 307 QTc: 405 Interpretive Statements SINUS TACHYCARDIA WITH SHORT GA INTERVAL WITH FREQUENT VENTRICULAR PREMATURE COMPLEXES RIGHT ATRIAL ENLARGEMENT [0.3mV P-WAVE] LEFT ATRIAL ENLARGEMENT [-0.15mV P-WAVE IN V1/V2] RIGHT AXIS DEVIATION [QRS AXIS > 100] PATTERN CONSISTENT WITH PULMONARY DISEASE POSSIBLE RIGHT VENTRICULAR CONDUCTION DELAY [RSR (QR) IN V1/V2] NONSPECIFIC ST DEPRESSION No previous ECG available for comparison Electronically Signed On 05-19-2025 10:27:22 COOKIE PADDER by Josep Reyes M.D.
[2025-05-19 10:55] LABS: Hematocrit 49.4 % (37.0-47.0); Hemoglobin 16.4 g/dL (12.0-15.0); Immature Granulocyte Percent A 0.2 % (0-0.5); Lymphocytes Absolute Auto 0.97 K/mm3 (0.9-3.2); Mean Corpuscular HGB Conc 33.2 g/dl (32-36); Mean Corpuscular Hemoglobin 29.2 pg (26-34); Mean Corpuscular Volume 88.1 fl (80-100); Nucleated Red Blood Cells Absolute Auto 0.000 K/mm3 (0.0-0.012); Nucleated Red Blood Cells Perc 0.0 % (0.0-0.2); Platelet Count Result 313 k/mm3 (150-375); Red Blood Count 5.61 M/mm3 (4.2-5.4); White Blood Count 13.7 K/mm3 (4.5-10.0)
[2025-05-19] MEDS: LACTATED RINGERS 1,000 ML 999 ML IV CONT (11:02)
[2025-05-19] MEDS: ONDANSETRON INJ 4 MG/2 ML VIAL IV PUSH (11:03)
--- OUTSIDE RECORDS SUMMARY | 2025-05-19 11:05 | XMS_ITS ---
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 States mood has been stable but with some anxiety recently. Provided prescription for ativan on 01/10/18. Of note, pt continues to request xanax and has been counseled numerous times, most recently 01/10/18, that she will not be provided xanax from special needs caregiver oncology and has follow up with psychiatry [...] S/p extensive counseling on tobacco cessation by POSTPARTUM NURSE ONC and vascular - Congratulated on decreased [...] gabapentin to 600 TID. Encouraged patient to curing pickling packer lidocaine from the pharmacy. 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
[2025-05-19 11:06] LABS: INR 1.0; Prothrombin Time 13.6 Seconds (11.1-14.7)
[2025-05-19] MEDS: ALBUTEROL SULFATE NEB 2.5 MG/3 ML INH 10 MG INHALATION (11:06)
[2025-05-19] MEDS: IPRATROPIUM BR 0.02% INH SOLN 0.5 MG/2.5 ML VIAL 1 MG INHALATION (11:06)
--- OUTSIDE RECORDS SUMMARY | 2025-05-19 11:06 | XMS_ITS | Encounter Summary ---
Author Organization [facility] Address [address] [place] [address] Care Team Providers Care Product Demonstrator Name Role Phone Emily Mcelroy MD Unavailable [phone] Beka Moss MD Primary Care Provider [phone] Sudhakar Lowery MD Unavailable [phone] Maria Isabel Temple MD Unavailable [phone] Encounter Details Date Type Department Care Team (Late st Contact Info) Description 12/02/2024 Hospital Encounter [facility] Operating Room [address] [place], [place] [id number] Sudhakar Lowery MD [address] [place] [id number] [place], [place] [id number] Social History Tobacco Use Types Packs/Day Years Used Date Smoking Tobacco: Every Day Cigarettes 0.5 35.6 Started: 10/26/1989 Passive Smoke Exposure: Current Smokeless Tobacco: Never Alcohol Use Standard Drinks/Week Comments Not Currently 0 (1 standard drink = 0.6 oz pur e alcohol) prior ETOH use 2 years ago AUDIT-C Answer Date Recorded Q1: How often do you have a drink containing alcohol? Never 02/06/2025 Q2: How many drinks containi ng alcohol do you have on a typical day when you are drinking? Patient does not drink Q3: How often do you have si x or more drinks on one occasion? 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 Never 02/06/2025 2:03 PM CDT Emily Wise M A Q2: How many drinks containing alcohol do you have on a typical day when you are drinking? Patient does not drink 02/06/2025 2:03 PM CDT Emily Wise MA Q3: How often do you have six or more drinks on one occasion? Never 02/06/2025 2:03 PM ARMANDOT Emily Wise M A documented as of this encounter Plan of Treatment Not on file documented as of this encounter Visit Diagnoses Not on filedocumented in this encounter Admitting Diagnoses Diagnosis Anal squamous cell carcinoma (HCC) Malignant neoplasm of anus, unspecified site documented in this encounter Care Teams Product Demonstrator Relationship Specialty Start Date End Date Beka Moss MD [address] [place] [address] PCP - General Family Medicine 06/01/21 Emily Mcelroy MD [address] [place] [id number] 09/15/16 Sudhakar Lowery MD [address] [place] [address] Surgeon Colon and Rectal Surgery 09/15/21 Maria Isabel Temple MD [address] [facility] [phone] [place] [address] Referring Physician Gynecologic Oncology 09/16/21 documented as of this encounter
--- OUTSIDE RECORDS SUMMARY | 2025-05-19 11:06 | XMS_ITS | Encounter Summary ---
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
--- OUTSIDE RECORDS SUMMARY | 2025-05-19 11:06 | XMS_ITS | Clinical Summary ---
Author Organization [facility] Address [address] [place] [address] Care Team Providers Care Bulk Mail Technician Name Role Phone Emily Mcelroy MD Unavailable [phone] Beka Moss MD Primary Care Provider [phone] Sudhakar Lowery MD Unavailable [phone] Maria Isabel Temple MD Unavailable [phone] Allergies Active Allergy Reactions Criticality Noted Date [...] needed for pain 10 tablet 5 Active Additional Information Patient not taking.Reported on 02/06/2025 docusate sodium (COLACE) 100 mg capsuleIndicati ons:constipatio [...] home for procedure. 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 States mood has been stable but with some anxiety recently. Provided prescription for ativan on 01/10/18. Of note, pt continues to request xanax and has been counseled numerous times, most recently 01/10/18, that she will not be provided xanax from gynecologist oncology and has follow up with psychiatry [...] S/p extensive counseling on tobacco cessation by [facility] and vascular - Congratulated on decreased [...] gabapentin to 600 TID. Encouraged patient to warp picker lidocaine from the pharmacy. 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 12/21/2007 12/26/2018 Surgical History Surgery Date Site/Laterality Comments IR [...] - 07/16/2022 revision EXAMINATION UNDER ANESTHESIA 04/12/2024 MOHS SURGERY 11/22/2024 Left left buttock ANAL EXAMINATION UNDER ANESTHESIA 11/08/2024 Exam under anesthesia with excision fulguration of left anterior perianal lesion Medical History Medical History Date Comments Peripheral vascular disease Iraheta's disease Seizure (HCC) past r/t epineph rine; another prior episode w/ xanax withdrawl. 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 Gender Identity Female 04/16/2024 6:57 AM CDT Sexual Orientation Straight 04/16/2024 6: 57 AM CDT Last Filed Vital Signs Vital Sign Reading Time Taken Comments Blood Pressure 114/75 02/06/2025 2:03 PM CDT Pulse 68 02/06/2025 2:03 PM CDT Temperature 36.5 C (97.7 F) 02/06/2025 2:03 PM CDT Respiratory Rate 17 11/08/2024 9:05 AM CDT Oxygen Saturation 98% 02/06/2025 2:03 PM CDT Inhaled Oxygen Concentration - - Weight 41.1 kg (90 lb 9.6 oz) 02/06/2025 2:03 PM CDT Height 162.6 cm (5' 4) 02/06/2025 2:03 PM CDT Body Mass Index 15.55 02/06/2025 2:03 PM CDT Plan of Treatment Health Maintenance Due Date Last Done Comments Breast Cancer Screening-Mammogram 1977 Colon Cancer Screening-Colonoscopy 1977 Depression Screening 1977 Hepatitis C Screening 1977 DTaP/Tdap/Td Vaccine (1 - Tdap) 1988 Hepatitis B Screening 12/07/1995 Regular Well Visit/Exam 18-64 12/07/1995 Pneumococcal vaccine <65 (1 of 2 - PCV) 1996 Influenza Vaccine (#1) 2025 Cervical Cancer Screening Discontinued 2023, 03/13/2024, 08/25/2021, Additional history exists Procedures Procedure Name Priority Date/Time Associated Diagnosis Comments STOOL DNA COLOGUARD Routine 02/22/2025 8:30 AM CDT Anal squamous cell carcinoma (HCC) History of anal cancer PAP AND HIGH RISK HPV, REFLEX TO GENOTYPING Routine 03/13/2024 4:47 PM CDT Primary vulvar squamous cell carcinoma (HCC) from Last 3 Months or Most Recently Relevant to Health Maintenance Results * Stool DNA - Cologuard (02/22/2025 8:30 AM CDT) Stool DNA - Cologuard Negative Negative [facility] (CLIA #:[id number]) Comment: The Cologuard (TM) test was performed on this specimen. NEGATIVE TEST RESULT. A negative Cologuard result indicates a low likelihood that a colorectal cancer (CRC) or advanced adenoma (adenomatous polyps with more advanced pre-malignant features) is present. The chance that a person with a negative Cologuard test has a colorectal cancer is less than 1 in 1500 (negative predictive value >99.9%) or has an advanced adenoma is less than 5.3% (negative predictive value 94.7%). These data are based on a prospective cross-sectional study of 10,000 individuals at average risk for colorectal cancer who were screened with both Cologuard and colonoscopy. (Rosas Roca al, N Engl J Med 2014;370(14):1286- 1297) The normal value (reference range) for this assay is negative. COLOGUARD RE-SCREENING RECOMMENDATION: Periodic colorectal cancer screening is an important part of preventive healthcare for asymptomatic individuals at average risk for colorectal cancer. Following a negative Cologuard result, the [place] [employer] Society and U.S. Multi-Society Task Force screening guidelines recommend a Cologuard re-screening interval of 3 years. References: [place] [employer] Guideline for Colorectal Cancer Screening: https://www.cancer.org/cancer/qbpkj-pvgdbz-qylkmp/cmvlmqkkr-xydhhocph-frovmhx/ac s-rec ommendations.html.; Daron CONNOR, Juve RINCON, Lalo McnairK, Colorectal Cancer Screening: Recommendations for Physicians and Patients from the U.S. Multi-Society Task Force on Colorectal Cancer Screening , Am J Gastroenterology 2017; 112:0988-5773. TEST DESCRIPTION: Composite algorithmic analysis of stool DNA-biomarkers with hemoglobin immunoassay. Quantitative values of individual biomarkers are not reportable and are not associated with individual biomarker result reference ranges. Cologuard is intended for colorectal cancer screening of adults of either sex, 45 years or older, who are at average-risk for colorectal cancer (CRC). Cologuard has been approved for use by the U.S. FDA. The performance of Cologuard was established in a cross sectional study of average-risk adults aged 50-84. Cologuard performance in patients ages 45 to 49 years was estimated by sub-group analysis of near-age groups. Colonoscopies performed for a positive result may find as the most clinically significant lesion: colorectal cancer [4.0%], advanced adenoma (including sessile serrated polyps greater than or equal to 1cm diameter) [20%] or non- advanced adenoma [31%]; or no colorectal neoplasia [45%]. These estimates are derived from a prospective cross-sectional screening study of 10,000 individuals at average risk for colorectal cancer who were screened with both Cologuard and colonoscopy. (Rosas Velazquez, N Engl J Med 2014;370(14):5313-8785.) Cologuard may produce a false negative or false positive result (no colorectal cancer or precancerous polyp present at colonoscopy follow up). A negative Cologuard test result does not guarantee the absence of CRC or advanced adenoma (pre-cancer). The current Cologuard screening interval is every 3 years. ([place] [employer] Society and U.S. Multi-Society Task Force). Cologuard performance data in a 10,000 patient pivotal study using colonoscopy as the reference method can be accessed at the following location: www.iTherX/results. Additional description of the Cologuard test process, warnings and precautions can be found at www.cologBlowtorchrd.com. Stool 02/22/2025 8:30 AM CDT 02/23/2025 9:22 PM CDT Sudhakar Lowery MD LAB BODY FLUIDS AND STO OLS ORDERABLES Final Result [facility] (CLIA #:[id number]) [place] [address] * Pap and High Risk HPV and Genotyping (Cytology Component) (03/13/2024 4:47 PM CDT) Thin prep (Pap test) 03/13/2024 4:47 PM CDT 03/13/2024 7:43 PM CDT Narrative PATHOLOGY [facility] - 03/20/2024 1:45 PM CDT EPIC results best viewed via link to PDF [facility] [place] [address] Note to Patients: This report may contain [...] details. CYTOPATHOLOGY REPORT FINAL Patient Name: JN MARIANOTomas Gender: F : 1975 (Age: 48) Address: [facility] [place] [address] [facility] #: [id number] Service: [employer] Location: Patient Type: [facility] SPECIMEN Taken: 03/13/2024 Received: 03/13/2024 Accessioned: 03/14/2024 [...] test have been verified by the [facility] Molecular Infectious Disease laboratory. Correlate with reported [...] clinical information and biopsy results as indicated. [facility] Clinical Laboratory Improvement Amendments (CLIA) mandate that cytologic and histologic results be correlated for laboratory quality officer & improvement standards. FOR ALL HIGH-GRADE CASES [...] determined by the Surgical Pathology Department at [facility] as part of an ongoing water quality technician program and in compliance with federally mandated [...] determined by the Surgical Pathology Department of [facility]. It has not been cleared or approved by the U. S. Food and Drug Administration. Sara Lamb MD LAB CYTOLOGY ORDERABLES Final Result PATHOLOGY [facility] 3rd Floor [place], [place] [phone] from Last 3 Months or Most Recently Relevant to Health Maintenance Insurance [employer] [facility] MED[facility] Advance Directives For more information, please contact: [phone] * Full Code (Latest Code Status on File) Date Activated Date Inactivated Comments 03/31/2019 3:55 PM 04/02/2019 9:09 PM Care Teams Bulk Mail Technician Relationship Specialty Start Date End Date Beka Moss MD [address] [place] [address] PCP - General Family Medicine 06/01/21 [place] [address] [place] [address] 09/15/16 Sudhakar Lowery MD [address] [place] [address] Surgeon Colon and Rectal Surgery 09/15/21 Maria Isabel Temple MD [address] [facility] [id number] [place] [address] Referring Physician Gynecologic Oncology 09/16/21
--- OUTSIDE RECORDS SUMMARY | 2025-05-19 11:06 | XMS_ITS | Clinical Summary ---
Author Organization [facility] Address [address] [place] [address] Care Team Providers Care Tray Checker Name Role Phone Beka Moss MD Primary Care Provider [phone] Source Comments [facility],non-owned Affiliates and Associated Physician Practices is amultiple site organization consisting of ambulatory clinics and hospital sitesin [place], [place], [place] and [place]. This disclosure is being madepursuant to the Care Everywhere program and may not contain all information available regarding this patient. 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 Gender Identity Not on file Sexual Orientation Choose not to disclose 2020 8:21 AM CDT Last Filed Vital Signs Vital Sign Reading Time Taken Comments Blood Pressure 136/84 08/30/2023 9:30 AM FUR POINTER Pulse 71 08/30/2023 9:30 AM FUR POINTER Temperature 36.6 C (97.8 F) 08/30/2023 9:30 AM FUR POINTER Respiratory Rate 18 01/05/2022 10:10 AM CDT Oxygen Saturation 99% 08/30/2023 9:30 AM FUR POINTER Inhaled Oxygen Concentration 21% 01/20/2020 1 0:00 AM CDT Weight 45.8 kg (101 lb) 08/30/2023 9:30 AM FUR POINTER Height 162.6 cm (5' 4) 08/30/2023 9:30 AM FUR POINTER Body Mass Index 17.34 08/30/2023 9:30 AM FUR POINTER Plan of Treatment Health Maintenance Due Date Last Done Comments COLOGUARD (AGES 45-75) - COL ON CA SCREENING 1977 COLON MONITORING 1977 COLONOSCOPY - COLON CA SCREENING 1977 CT COLONOGRAPHY - COLON CA SCREENING 1977 Colorectal Cancer Screening 1977 FIT - COLON CA SCREENING 1977 FLEX SIG - COLON CA SCREENING 1977 LIPID TESTING 1977 MAMMOGRAM 1977 Opioid Medication Agreement - Annual 1977 HEPATITIS C SCREENING 12/02/1995 DTAP/TDAP/TD VACCINES (1 - Tdap) 1996 HEPATITIS B VACCINE (1 of 3 - 19+ 3-dose series) 1996 PNEUMOCOCCAL VACCINE (1 of 2 - PCV) 1996 COVID-19 VACCINE (1 - 2023-2 5 season) 2025 INFLUENZA VACCINE (#1) 2025 ZOSTER VACCINE (1 of 2) 12/07/2027 [...] this topic Medical Devices Implanted Type Area Denial Resolution Specialist Device Identifier Shelf Expiration Date Model / Serial / Lot Graft Cv 6mm 30cm [facility] Polystr 2 Vlr - [id number] Implanted:Qty: 1 on 07/05/2019 by Cortez Fernandez MD at [facility] [employer] 09/14/2023 [id number] / [id number] / [id number] Description:femoral Graft Vasc 7mm 50cm 40cm Hep Propaten - [id number] Implanted:Qty: 1 on 07/05/2019 by Cortez Fernandez MD at [facility] [employer] 04/15/2023 [id number] / [id number] / Description:Right popliteal Cryovein Saphenous Vein Human Allograft Implanted:Qty: 1 on 10/15/2019 by Jayne Mao MD at [facility] Right: Leg [employer] 01/16/2029 V010 / [id number] / Cryovein Saphenous Vein Human Allograft Implanted:Qty: 1 on 01/17/2020 by Jayne Mao MD at [facility] [employer] 09/24/2029 V010 / [id number] / [id number] Description:bilateral femora l Cryoartery Femoral - Popliteal Artery Human Allograft Implanted:Qty: 1 on 01/17/2020 by Jayne Mao MD at [facility] [employer] 08/09/2029 R020 / [id number] / Graft Tissue Cryoartery [address] [place] [address] [id number] Implanted:Qty: 1 on 01/17/2020 by Jayne Mao MD at [facility] [employer] 05/06/2029 R010 / [id number] / Procedures Procedure Name Priority Date/Time Associated Diagnosis Comments HIV-1 HIV-2 ANTIGEN/ANTIBODY AM Draw 11/16/2020 2:36 AM CDT from Last 3 Months or Most Recently Relevant to Health Maintenance Results * HIV-1 HIV-2 ANTIGEN/ANTIBODY (11/16/2020 2:36 AM CDT) HIV Antigen/Antibod y 1 & 2 Non-reacti ve Non-react ignacio 11/16/2020 3:52 AM CDT [facility] Comment:Neither HIV-1 p24 An tigen nor HIV-1/HIV-2 Antibodies are detected. Blood BLOOD SPECIMEN / Unknown Lab Venipuncture / Unknown 11/16/2020 2:36 AM CDT 11/16/2020 3:07 AM CDT Jayne Mao MD LAB - HEMATOLOGY ORDERABLES Final Result [facility] [address] [place] [id number], [place] [phone] from Last 3 Months or Most Recently Relevant to Health Maintenance Insurance [facility] Advance Directives Documents on File Type Date Recorded Patient Retirement Consultant Expl anation Adv Directive/Living Will/POA 04/24/2019 6:16 [...] 1:50 AM 01/24/2020 12:32 PM Care Teams Tray Checker Relationship Specialty Start Date End Date Beka Moss MD PCP - General 04/05/19
--- OUTSIDE RECORDS SUMMARY | 2025-05-19 11:06 | XMS_ITS | Patient Health Record ---
Author Organization [facility] Address [address] [place] [address] Care Team Providers Care Physician Office Rep Name Role Phone Marissa Rivera Primary Care Provi yun [phone] Lalitha Calderón Unavailable [phone] Allergies Allergen (clinical drug ingredient) Drug/Non Drug [...] TABLETS BY MOUTH EVERY DAY AT BEDTIME NEEDED; Duration: 30 needs appt Active Paxil 20 MG 1 tablet in the morn ing Orally Once a day; Duration: 30 day(s) Not-Taking Gabapentin 300 MG 3 tablets Orally thr ee times a day Active Abilify 10 MG 1 tablet Orally Once a day; Duration: 30 Active Ibuprofen 400 MG 1 tablet with food o r milk as needed Orally Three times a day Active Remeron 30 MG 1 tablet at bedtime Orally Once a day; Duration: 30 day(s) Not-Taking oxyCODONE HCl 5 MG 1 tablet as needed Orally every 4 hrs Active Abilify 5 MG 1 tablet Orally Once a day for 14 days then increase to 10mg daily; Duration: 14 days 11/30/2020 Active KlonoPIN 1 MG 1 tablet Orally Once a day Not-Taking PROzac 20 MG 1 capsule Orally Onc e a day; Duration: 30 day(s) Not-Taking SEROquel 100 MG 1 tablet at bedtime Orally Once a day; Duration: 30 day(s) Not-Taking Xanax 0.25 MG 1 tablet Orally Twic e a day Not-Taking Zoloft 100 MG 1 tablet Orally Once a day; Duration: 30 day(s) Not-Taking Depakote ER 500 MG 1 tablet Orally Once a day; Duration: 30 day(s) Not-Taking Problems Problem Type SNOMED Code ICD Code Onset Dates Problem Status W/U Status Risk Notes Problem Generalized anxiety disorder (91329082) AURELIO (generalized anxiety disorder) (F41.1) Active confirmed Problem Major depressive disorder (935767798) MDD (major depressive disorder) (F32.9) Active confirmed Plan Of Treatment No Information Insurance Providers Payer Name Payer Address Payer Phone Subscriber Number Group Number Insured Name Patient Relationship to Insured Coverage Start Date Coverage End Date [address] [phone] [id number] Judy Luis Self - patient is the insured 1 Medical (General) History Medical History History ICD Code Bartholin cancer asthma COPD chemo and radiation Surgical History Surgery Date(Month/Year) right leg amputation 09/2020 tumor removal vulvar cancer cyst removal ( multiple) c section x 2 Hospitalization History Reason Date(Month/Year) child for HI/SI, admitted to [facility] er I said I wanted to kill the cancer doctors 2017
--- OUTSIDE RECORDS SUMMARY | 2025-05-19 11:06 | XMS_ITS ---
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 Plan - The patient follows for [id number] surveillance exams, but is currently following qmont [...] S/p extensive counseling on tobacco cessation by [facility] [employer] [facility] and vascular - Congratulated on decreased [...]
[2025-05-19 11:07] LABS: Partial Thromboplastin Time 25.6 Seconds (22.3-36.8)
[2025-05-19] MEDS: FAMOTIDINE 20 MG/2 ML VIAL IV PUSH (11:07)
[2025-05-19 11:12] LABS: Alanine Aminotransferase 18 U/L (6-35); Albumin Level 4.7 g/dL (3.5-5.1); Alkaline Phosphatase 86 U/L (38-126); Anion Gap 12 mmol/L (4-12); Aspartate Amino Transferase 37 U/L (14-36); Bilirubin,Total 0.5 mg/dL (0.2-1.3); Blood Urea Nitrogen 23 mg/dL (7-17); Calcium 9.8 mg/dL (8.4-10.2); Carbon Dioxide 25 mmol/L (22-30); Chloride 102 mmol/L (98-107); Estimated CRCL calculation 45 ml/min; Estimated Glomerular Filt Rate > 60; Glucose 153 mg/dL (65-110); Potassium 4.2 mmol/L (3.4-5.0); Sodium 139 mmol/L (137-145); Total Protein 8.7 g/dL (6.3-8.2)
[2025-05-19 11:23] LABS: NT Pro B Type Natriuretic Pept 73 pg/mL (19.9-100); Troponin I < 0.012 ng/mL (0.000-0.034)
[2025-05-19 12:03] LABS: Influenza A QL RT-PCR Negative (Negative); Influenza B QL RT-PCR Negative (Negative); RSV RNA, RT-PCR Negative (Negative); SARS-CoV-2 RNA PCR Negative (Negative)
--- NOTE | 2025-05-19 13:47 | ED.CHESTPAIN ---
HPI - Chest Pain General Chief Complaint: Chest Pain Stated Complaint: chest pain. coughing. SOB Time Seen by Provider: 05/19/25 10:39 History of Present Illness HPI narrative: For last 2 days patient has been having coughing and difficulty breathing, body aches, chills, started having some chest pain today when she saw her doctor and he sent her to the emergency room because her oxygen was low. She does smoke cigarettes daily Related Data Home Medications ?Medication ?Instructions ?Recorded ?Confirmed ?Last Taken ?Type omeprazole 20 mg capsule,delayed 20 mg PO TID 10/10/23 10/10/23 Unknown History release alprazolam 0.5 mg tablet 0.5 mg PO BID 12/26/24 12/27/24 Unknown History Allergies Allergy/AdvReac Type Severity Reaction Status Date / Time bee venom protein (honey bee) Allergy Severe Anaphylaxis Verified 05/19/25 10:11 codeine Allergy Severe Hives Verified 05/19/25 10:11 epinephrine Allergy Severe Seizure Verified 05/19/25 10:11 watermelon Allergy Severe Anaphylaxis Verified 05/19/25 10:11 nylon Allergy Other Verified 05/19/25 10:11 Review of Systems Review of Systems: All systems reviewed & are unremarkable except as noted in HPI and below PMFSH Past Medical History Medical History (Updated 05/19/25 @ 14:55 by Fern Ace MD) GERD (gastroesophageal reflux disease) PAD (peripheral artery disease) COPD (chronic obstructive pulmonary disease) 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 Asthma Anxiety Surgical History Surgical History (Updated 12/26/24 @ 08:54 by Natalie Tinoco) History of radical hysterectomy H/O radical vulvectomy Hx of right BKA Hx of AKA (above knee amputation) Family History Family History (Updated 12/26/24 @ 08:31 by Inessa Biggs MA) Other Anxiety Asthma Depression Heart disease Hypertension Social History Social History (Updated 12/26/24 @ 08:39 by Inessa Biggs MA) Smoking packs per day: 0.5 Smoking cigarettes per day: 10.0 Years smoked: 35 Smoking pack-years: 17.50 Smoking status: Current every day smoker Tobacco type: cigarettes Alcohol intake: never Substance use: current Substance use type: marijuana Last use: Daily Do You Feel Safe in your Home?: Yes Lack of Transportation: No Lack of Food: Never True Current Housing: I Have Housing Concerned About Future Housing: No Difficulty Paying Gas/Electric Bills: YES Difficulty Paying for Meds: No Education: High School Diploma/GED Difficulty w/ Childcare or Family Care: No Living arrangements: with family Spiritual care concerns: No Exam Narrative: EXAMINATION OF ORGAN SYSTEMS/BODY AREAS: Constitutional: Vital signs per nursing GENERAL: Appears out of breath and uncomfortable HEAD: Normal with no signs of head trauma. EYES: EOMI, conjunctiva normal ENT: Hearing grossly intact LUNGS: Extensive wheezing bilaterally HEART: Tachycardic ABD: [Soft], [nontender to palpation] EXT: Normal range of motion SKIN: [No rashes or lesions.] NEURO: [Alert and oriented x 3. No gross focal sensory or strength deficits.] PSYCH: Normal affect Course Vital Signs Vital signs: Vital Signs Temperature 98.7 F 05/19/25 10:28 Pulse Rate 132 H 05/19/25 10:28 Respiratory Rate 20 05/19/25 10:28 Blood Pressure 148/102 H 05/19/25 10:28 Pulse Oximetry 90 05/19/25 10:28 Oxygen Delivery Room Air 05/19/25 10:28 Temperature 98.4 F 05/19/25 10:35 Pulse Rate 94 05/19/25 14:16 Respiratory Rate 12 05/19/25 14:16 Blood Pressure 150/87 H 05/19/25 14:16 Pulse Oximetry 97 05/19/25 14:16 Oxygen Delivery Room Air 05/19/25 10:40 MDM - Chest Pain MDM Narrative Medical decision making narrative: ED COURSE AND MEDICAL DECISION MAKIN-year-old female presenting with chest pain, shortness of breath, all over body aches and chills and nausea. EKG done in triage negative for STEMI. Cardiac workup is initiated and breathing treatments started. EKG: Performed in triage and interpreted by me. Sinus tachycardia. Rate 104. Right axis. DE normal. QRS duration normal. QTc normal. Some ST depressions without ST elevations. HEART score is 3 with no acute ischemic changes on EKG and negative troponin making ACS unlikely. Given her low oxygen and tachycardia, I did obtain CT PE after D-dimer was elevated, which thankfully does not show a PE, but does show possible bilateral pneumonia or mucous plugging After breathing treatments and steroids, I did re-evaluate her and she feels much better, she is not breathing comfortably, in no distress. Vital signs are now normal/stable including normal oxygen on room air. I have started her on antibiotics, discussed possible admission, patient refuses and wants to go home. On repeat evaluation just prior to discharge, the patient is no acute distress. She was given clear return instructions by myself in person as well as on discharge paperwork. Procedures: Pulse oximetry interpretation - not hypoxic. EKG interpretation. Review of medical records. Lab Data 05/19/25 10:49 05/19/25 10:49 Labs: Lab Results 05/19/25 05/19/25 05/19/25 Range/Units 10:49 11:21 13:46 WBC 13.7 H (4.5-10.0) K/mm3 RBC 5.61 H (4.2-5.4) M/mm3 Hgb 16.4 H (12.0-15.0) g/dL Hct 49.4 H (37.0-47.0) % MCV 88.1 (80-100) fl MCH 29.2 (26-34) pg MCHC 33.2 (32-36) g/dl RDW 13.9 (11.5-14.5) % Plt Count 313 (150-375) k/mm3 MPV 10.2 (7.4-10.4) fl Immature Gran % (Auto) 0.2 (0-0.5) % Neut % (Auto) 86.1 H (45.5-73.1) % Lymph % (Auto) 7.1 L (18.3-44.2) % Jenkins % (Auto) 6.3 (2.6-8.5) % Eos % (Auto) 0.2 (0-4.4) % Baso % (Auto) 0.1 L (0.2-1.2) % Lymph # (Auto) 0.97 (0.9-3.2) K/mm3 Jenkins # (Auto) 0.9 H (0.1-0.6) K/mm3 Eos # (Auto) 0.0 (0-0.3) K/mm3 Baso # (Auto) 0.0 (0.0-0.1) K/mm3 Abs Immat Gran (auto) 0.03 (0.00-0.031) K/mm3 Absolute Neuts (auto) 11.8 H (1.3-6.7) K/mm3 Absolute Nucleated RBC 0.000 (0.0-0.012) K/mm3 Nucleated RBC % 0.0 (0.0-0.2) % PT 13.6 (11.1-14.7) Seconds INR 1.0 APTT 25.6 (22.3-36.8) Seconds D-Dimer 0.56 H (<0.48) ug/mL Sodium 139 (137-145) mmol/L Potassium 4.2 (3.4-5.0) mmol/L Chloride 102 (98-107) mmol/L Carbon Dioxide 25 (22-30) mmol/L Anion Gap 12 (4-12) mmol/L BUN 23 H D (7-17) mg/dL Creatinine 0.87 (0.7-1.0) mg/dL Estim Creat Clear Calc 45 ml/min Estimated GFR > 60 (59 - ) Glucose 153 H (65-110) mg/dL Calcium 9.8 (8.4-10.2) mg/dL Total Bilirubin 0.5 (0.2-1.3) mg/dL AST 37 H (14-36) U/L ALT 18 (6-35) U/L Alkaline Phosphatase 86 (38-126) U/L Troponin I < 0.012 < 0.012 (0.000-0.034) ng/mL NT-Pro-B Natriuret Pep 73 (19.9-100) pg/mL Total Protein 8.7 H (6.3-8.2) g/dL Albumin 4.7 (3.5-5.1) g/dL Influenza A (RT-PCR) Negative (Negative) Influenza B (RT-PCR) Negative (Negative) RSV (RT-PCR) Negative (Negative) SARS-CoV-2 RNA (RT-PCR) Negative (Negative) Discharge Plan Discharge Clinical Impression: Acute bronchitis Patient Disposition: Home Condition: Stable Instructions: Antibiotic Form, Acute Bronchitis (ED) Additional Instructions: Please take the medications as prescribed, and follow up with your marketing planner as scheduled, and with your primary care doctor. Come back to the ER if your symptoms worsen. Also please stop smoking. Patient Language: Slovak Prescriptions: New albuterol sulfate 90 mcg/actuation HFA aerosol inhaler 2 puff inhalation QID PRN (Reason: shortness of breath or wheezing) Qty: 8.5 0RF azithromycin 250 mg tablet 250 mg PO DAILY 4 Days Qty: 4 0RF Rx Instructions: start on day 2 of therapy prednisone 20 mg tablet 40 mg PO DAILY 4 Days Qty: 8 0RF amoxicillin-pot clavulanate 875-125 mg tablet 1 tablet PO Q12H Qty: 10 0RF No Action omeprazole 20 mg capsule,delayed release(DR/EC) 20 mg PO TID alprazolam 0.5 mg tablet 0.5 mg PO BID Follow-up/Referrals: Beka Moss MD [Primary Care Provider, Family Practice] - 2 Days
[2025-05-19] MEDS: AZITHROMYCIN 500 MG TABLET PO (14:21)
[2025-05-19 14:23] LABS: Troponin I < 0.012 ng/mL (0.000-0.034)
== END 2025-05-19 15:25 | disposition home or self-care (01) ==
PROVIDERS: Emergency Provider Emergency Medicine; PCP Emergency Medicine
DX: J20.9 Acute bronchitis, unspecified (principal); Z20.822 Contact with and (suspected) exposure to COVID-19; R00.0 Tachycardia, unspecified; K21.9 Gastro-esophageal reflux disease without esophagitis; I73.9 Peripheral vascular disease, unspecified; J44.9 Chronic obstructive pulmonary disease, unspecified; J45.909 Unspecified asthma, uncomplicated; F41.9 Anxiety disorder, unspecified
CPT/HCPCS: 36415; 71045; 71275; 80053; 83880; 84484; 85025; 85380; 85610; 85730; 87040; 87637; 93005; 94640; 96361; 96374; 96375; 99284; A9270; J2405; J2919; J7120; Q9967